=== PATIENT | female | born 1960 | race Caucasian/White ===

== ENCOUNTER → 2019-07-02 16:44 | Outpatient (CLI) | payer BC, SELFPAY ==
--- NOTE | ~2019-07-02 | XR_ITS ---
EXAMINATION: XR chest 2V DATE: 07/02/2019 16:57 INDICATION: Hemoptysis and cough TECHNIQUE: PA and lateral views of the chest are obtained. COMPARISON: 03/24/14 FINDINGS: The lungs are free of acute opacities. There is no pleural effusion or pneumothorax. The ca rdiomediastinal silhouette is normal. There is moderate thoracic spondylosis. Surgical clips in the r ight upper quadrant are likely from prior cholecystectomy. IMPRESSION: 1. No acute cardiopulmonary abnormality. Reviewed, dictated and finalized at location A. ER STACKER
== END ==
PROVIDERS: PCP Family Medicine; Visit Provider Family Medicine
DX: R04.2 Hemoptysis (principal)
CPT/HCPCS: 71046

== ENCOUNTER 2019-11-15 16:32 | Outpatient (CLI) | payer BC, SELFPAY ==
--- NOTE | ~2019-11-15 | US_ITS ---
EXAMINATION: US venous doppler [facility] DATE: 11/15/2019 17:29 INDICATION: Bilateral lower limb pain TECHNIQUE: Easton scale images without and with compression and Doppler images of the bilateral lower e xtremity veins were obtained. COMPARISON: None FINDINGS: The right common femoral vein, profunda femoral vein, femoral vein, popliteal vein, peroneal trunk, p osterior tibial veins, and greater saphenous vein are patent. The left common femoral vein, profunda femoral vein, femoral vein, popliteal vein, peroneal trunk, po sterior tibial veins, and greater saphenous vein are patent. IMPRESSION: 1. Patent bilateral lower extremity veins. No evidence of deep venous thrombosis. Reviewed, dictated and finalized at location A. IMPRESSION: 1. Patent bilateral lower extremity veins. No evidence of deep venous thrombosi s.
[2019-11-15 17:15] LABS: Basophils Percent Auto 0.6 % (0.2-1.2); Eosinophils Absolute Auto 0.1 K/mm3 (0-0.3); Hematocrit 35.7 % (37.0-47.0); Hemoglobin 11.6 g/dL (12.0-15.0); Immature Granulocyte Absolute 0.02 K/mm3 (0.00-0.031); Immature Granulocyte Percent A 0.3 % (0-0.5); Mean Corpuscular HGB Conc 32.5 g/dl (32-36); Mean Corpuscular Hemoglobin 30.6 pg (26-34); Mean Corpuscular Volume 94.2 fl (80-100); Mean Platelet Volume 10.4 fl (7.4-10.4); Monocytes Absolute Auto 0.7 K/mm3 (0.1-0.6); Monocytes Percent Auto 10.8 % (2.6-8.5); Neutrophils Absolute Auto 4.4 K/mm3 (1.3-6.7); Neutrophils Percent Auto 64.3 % (45.5-73.1); Platelet Count Result 254 k/mm3 (150-375); Red Blood Count 3.79 M/mm3 (4.2-5.4); White Blood Count 6.8 K/mm3 (4.5-10.0)
[2019-11-15 17:27] LABS: Add Urine Microscopic? YES; Amorphous Sediment Urine Moderate; Appearance Urine Cloudy (Clear); Bilirubin Urine Negative (Negative); Blood Urine Negative (Negative); Color Urine Yellow (Yellow); Glucose Urine UA Negative (Negative); Ketones Urine Negative (Negative); Leukocyte Esterase Ur Negative LEU/UL (NEGATIVE); Mucus Urine Rare /lpf; Nitrate Urine Negative (Negative); Protein Urine Negative (Negative); RBC Urine 0-2 /hpf (0-2); Specific Grav Ur 1.018 (1.001-1.035); Squamous Epithelial Cell Urine Many /hpf (Few); Urobilinogen Urine Negative mg/dL (<2.0); WBC Urine 0-3 /hpf (0-3)
[2019-11-15 17:54] LABS: Thyroid Stimulating Hormone 0.396 uIU/mL (0.465-4.680)
== END 2019-11-15 16:33 | disposition home or self-care (01) ==
PROVIDERS: Physician Assistant; PCP Family Medicine; Visit Provider Physician Assistant
DX: C50.912 Malignant neoplasm of unspecified site of left female breast (principal); M79.662 Pain in left lower leg; R60.0 Localized edema; R73.09 Other abnormal glucose; R53.83 Other fatigue; E03.9 Hypothyroidism, unspecified; E78.2 Mixed hyperlipidemia; E78.1 Pure hyperglyceridemia; M85.80 Other specified disorders of bone density and structure, unspecified site
CPT/HCPCS: 36415; 81001; 83036; 84443; 85025; 93970

== ENCOUNTER → 2020-08-08 02:21 | Outpatient (CLI) | payer BC, SELFPAY ==
[2020-08-08 19:27] LABS: SARS-CoV-2 RNA PCR Negative
== END ==
PROVIDERS: PCP Internal Medicine; Visit Provider Orthopaedic Surgery
DX: Z01.812 Encounter for preprocedural laboratory examination (principal); Z20.822 Contact with and (suspected) exposure to COVID-19
CPT/HCPCS: C9803; U0003; U0005

== ENCOUNTER 2020-08-11 02:07 | Day surgery (SDC) | payer BC, SELFPAY ==
[2020-08-04 16:02] VITALS: BMI 41.1
--- NOTE | 2020-08-08 14:53 | WPDANESEPPF ---
Anes - Initial Pre Proc Eval Procedure: Operation Date: 08/11/20 09:30 Proposed Procedures p Right Open Rotator Cuff Repair - Davey Zhu MD Date/Time: 08/08/20 14:53 Surgeon: Davey Zhu MD Pre Op Diagnosis: right rotator cuff tear Patient Data Age: 59 Gender: F Height: 1.57 m Weight: 102 kg Allergies Allergy/AdvReac Type Severity Reaction Status Date / Time Penicillins Allergy Mild Unknown Verified 08/04/20 15:59 cephalexin Allergy Unknown Unknown Verified 08/04/20 15:59 codeine AdvReac Mild Palpitation Verified 08/04/20 15:59 s CEPHALEXIN MONOHYDRATE Allergy Unknown UNKNOWN Uncoded 08/04/20 15:59 REACTION CHILD Home Medications Medication Instructions Recorded Confirmed Type celecoxib 100 mg capsule 100 mg PO DAILY 05/25/19 08/04/20 History multivitamin 1 tablet PO DAILY 05/25/19 08/04/20 History cholecalciferol (vitamin D3) 100 100 mcg PO DAILY #30 cap 11/15/19 08/04/20 Rx mcg (4,000 unit) capsule fenofibrate 160 mg tablet 160 mg PO DAILY #90 tablet 03/04/20 08/04/20 Rx levothyroxine 175 mcg tablet 175 mcg PO DAILY #90 tablet 06/04/20 08/04/20 Rx fluticasone propionate [Flonase] 1 spray INTRANASAL DAILY PRN 08/04/20 08/04/20 History glucos sul 4WOi-sbo-rpnve-C-Mn 1 cap PO DAILY 08/04/20 08/04/20 History [Glucosamine Chondroitin] vit C-vit V-gvkeln-lkyg-lutein 1 cap PO DAILY 08/04/20 08/04/20 History [PreserVision Lutein] zinc 50 mg PO DAILY 08/04/20 08/04/20 History Patient hx anesthesia problems: none Family hx anesthesia problems: none PMFSH Past Medical History Medical History Bilateral lower extremity edema BMI 40.0-44.9, adult Elevated glucose Fatigue Pain of left calf Palpitations Right shoulder pain Tachycardia Vitamin D deficiency, unspecified Vitamin deficiency Surgical History Surgical History H/O breast surgery breast cancer 2015 Family History Family History Father Family history of diabetes mellitus in first degree relative Mother Family history of diabetes mellitus in first degree relative Sibling Family history of diabetes mellitus in first degree relative Family history of lung cancer Social History Social History (Updated 07/23/20 @ 13:10 by Davey Zhu MD) Smoking packs per day: 0.5 Smoking cigarettes per day: 10.0 Years smoked: 45 Smoking pack-years: 22.50 Smoking status: Current every day smoker Tobacco type: cigarettes Second hand tobacco smoke exposure: No Smoking end date: 05/23/16 Alcohol intake: current Drinks per week: 7 Substance use: never Substance use type: does not use Living arrangements: with family Gender identity (if verbalized by the patient): Female Spiritual care concerns: No Anes - Eval Final PreProcedure Day of Procedure 08/08/20 14:53 Patient weight: morbidly obese Heart: regular rate and rhythm Lungs: clear to auscultation and normal air movement Airway: Mallampati scale class II Neurological: alert and oriented Last oral intake: >/= 8 hours ASA classification: III Emergent: no Anesthetic plan: proceed Anesthesia type and monitoring: general ETT and standard monitoring Informed Consent: The patient's anesthetic plan and its attendant risks and benefits were discussed with the patient/family/POA. Questions were solicited and answers provided to the satisfaction of the patient/family/POA.
[2020-08-11] VITALS (19 sets, daily range): BP systolic 135–161; BP diastolic 60–77; PULSE 95–115; RESP 14–24; TEMP 36.3–36.6; O2SAT 89–98
--- NOTE | 2020-08-11 06:07 | ECG_ITS ---
Measurements Intervals [place] Rate: 88 P: 48 AL: 141 QRS: 31 QRSD: 77 T: 18 QT: 349 QTc: 424 Interpretive Statements SINUS RHYTHM INCOMPLETE RIGHT BUNDLE BRANCH BLOCK BASELINE ARTIFACT- II, III, AVF, V1 BORDERLINE ECG Electronically Signed On 08-11-2020 7:57:40 CDT by Miguel Mock D.O.
[2020-08-11] MEDS: LACTATED RINGERS 1,000 ML 30 ML IV CONT ×2 (08:10→11:08)
--- NOTE | 2020-08-11 08:11 | WPDANESPNB ---
Anes - Peripheral Nerve Block Date/Time: 08/11/20 08:11 I have discussed with the patient/family/POA the placement of a peripheral nerve block for post-operative pain management, including associated risks, benefits, complications, and side effects. Alternative methods of post-operative analgesia were detailed. Questions were solicited and answers provided to the satisfaction of the patient/family/POA. Time-Out: A pre-procedural Time-Out was completed immediately before starting the procedure and confirmed: Patient Identification, Site, Procedure, Patient Position and the Availability of Requisite Equipment. Clinical Indications: Acute post-operative pain management requested by the operative surgeon. Nerve Block Insertion Note Anes-nerve block: interscalene right Patient position: supine Skin prep: chlorhexidine Needle: 22 gauge, stimulating, insulated echogenic needle. Needle length: 50 mm Technique: ultrasound Injectate: bupivacaine 0.5% with epi 5 mcg/ml (30cc- no epi) Observations: tolerated well Complications: none Procedure start time:: 937 Procedure end time:: 940
[2020-08-11] MEDS: KETOROLAC 15 MG/ML VIAL (*BKC) IV PUSH (08:26)
[2020-08-11] MEDS: ACETAMINOPHEN 500 MG TABLET 1000 MG PO (08:26)
--- NOTE | 2020-08-11 09:15 | WPDHPUPDATE1 ---
History and Physical Update Update Date/Time: 08/11/20 09:15 History and Physical has been reviewed, including an updated exam of the patient. There are NO changes in the patient's condition. Risks, benefits, and alternatives have been discussed and questions answered. Patient agrees to proceed with procedure.
[2020-08-11] MEDS: CLINDAMYCIN 900 MG/D5W 50 ML 900 MG/50 ML PIGGYBACK 50 MG IVPB (09:51)
[2020-08-11] MEDS: BUPIVACAINE/EPINEPHRINE 0.25% 50 ML VIAL 30 ML INFILTRATE (10:30)
--- NOTE | 2020-08-11 11:05 | P.OP_ITS ---
Procedure Note - Detailed Date of procedure: 08/11/20 Pre-op diagnosis: right rotator cuff tear Post-op diagnosis: same Procedure performed: Right rotator cuff repair Anesthesia: GETA Surgeon: Davey Zhu MD Color Card Maker: Moon Gillespie Estimated blood loss (mL): 20 Drains: No Packing: No Pathology: none sent Complications: No immediate complications Condition: stable Disposition: PACU
[2020-08-11] MEDS: ALBUTEROL SULFATE NEB 2.5 MG/3 ML INH 1.25 MG INHALATION (12:17)
--- NOTE | 2020-08-11 16:04 | SUR.PHASEII ---
1600 PT O2 SAT ON ROOM AIR NOT BELOW 90% SINCE 1455. PT STATES SHE FEELS LIKE SHE IS BREATHING BETTER & IS WANTING TO BE DISCHARGED HOME. PT MEETS ANESTHESIA DISCHARGE CRITERIA. DISCHARGE INSTRUCTIONS GIVEN & ALL QUESTIONS ANSWERED. 1613 DR MERAZ & DR DICK UPDATED ON PTS CONDITION- BOTH DOCTORS OKAY TO DISCHARGE HOME.
== END 2020-08-11 16:15 | disposition home or self-care (01) ==
PROVIDERS: PCP Internal Medicine; Visit Provider Orthopaedic Surgery
PROC: (CPT 23420; principal; 2020-08-11 09:30)
DX: M75.101 Unspecified rotator cuff tear or rupture of right shoulder, not specified as traumatic (principal); G89.18 Other acute postprocedural pain; R60.0 Localized edema; R00.2 Palpitations; R00.0 Tachycardia, unspecified; E55.9 Vitamin D deficiency, unspecified; F17.210 Nicotine dependence, cigarettes, uncomplicated
CPT/HCPCS: 64415; 23412; 93005; 94640; A4565; A9270; J0330; J1100; J1885; J2250; J2405; J2704; J3010; J7120

== ENCOUNTER → 2021-12-30 14:43 | Outpatient (CLI) | payer BC, SELFPAY ==
--- NOTE | ~2021-12-30 | US_ITS ---
EXAMINATION: US renal BI DATE: 12/30/2021 15:00 INDICATION: Hematuria, unspecified type TECHNIQUE: Multiple ultrasound grayscale images of the kidneys were obtained. COMPARISON: None. FINDINGS: The right kidney measures 10.7 x 6.4 x 6.3 cm. The left kidney measures 11.3 x 5.6 x 5.5 cm. The kidn eys demonstrate normal parenchymal echogenicity. There is no hydronephrosis. The bladder is normal. IMPRESSION: Normal renal ultrasound findings. Reviewed, dictated and finalized at location K.
== END ==
PROVIDERS: PCP Internal Medicine; Visit Provider Internal Medicine Medical Oncology
DX: R31.9 Hematuria, unspecified (principal)
CPT/HCPCS: 76775

== ENCOUNTER → 2022-01-11 10:36 | Outpatient (CLI) | payer BC, SELFPAY ==
--- NOTE | ~2022-01-11 | CT_ITS ---
EXAMINATION: CT abdomen pelvis wo/w con DATE: 01/11/2022 11:48 INDICATION: Gross hematuria TECHNIQUE: Computed tomography (CT) of the abdomen and pelvis was performed without intravenous contr ast. CT of the abdomen and pelvis was then performed with a total of 130 mL Omnipaque 350 intravenous contrast using a double-bolus technique for simultaneous opacification of the renal parenchyma and r enal collecting system. The dose-length product (DLP) was 2118.87 mGy-cm. Automated exposure control and iterative reconstruction technique were employed. COMPARISON: None FINDINGS: Minimal dependent atelectasis is present in the lung bases. The heart size is normal. The l iver is diffusely low in attenuation when compared with the spleen, consistent with hepatic steatosis . The gallbladder is surgically absent. The spleen, pancreas, and adrenal glands are normal. There is a 2 mm nonobstructing stone of the right kidney. The left kidney is unremarkable. There is no hydron ephrosis or hydroureter. There is a stricture at the right ureteropelvic junction. No suspicious mag l or urothelial lesion is identified. No pathologically enlarged abdominal or pelvic lymph nodes are identified. There is no free intraperitoneal gas or evidence of bowel obstruction. There is mild lumb ar spondylosis. IMPRESSION: 1. 2 mm nonobstructing stone of the right kidney. 2. Right ureteropelvic junction stricture. 3. No suspicious renal or urothelial lesion identified. Reviewed, dictated and finalized at location B.
[2022-01-11 11:25] LABS: Estimated Glomerular Filt Rate > 60
== END ==
DX: R31.9 Hematuria, unspecified (principal); N20.0 Calculus of kidney; Q62.11 Congenital occlusion of ureteropelvic junction
CPT/HCPCS: 74178; Q9967

== ENCOUNTER 2022-03-12 08:34 | Outpatient (CLI) | payer BC, SELFPAY ==
--- NOTE | 2022-03-15 17:53 | WPDPFTINT ---
PFT Procedure Performed PFT Procedure Performed Plethysmography (Lung Vol) Diffusing Cap (DLCO) Flow Vol Loop Spirometry w/o Bronchodil PFT Interpretation This is a pulmonary function test with spirometry, plethysmography and diffusing capacity. The test was performed and results interpreted in accordance with the 2019 and 2005 ATS/ERS Task Force guidelines respectively using the Global Lung Function Initiative-2012 reference equations. Patient demonstrated good effort and cooperation. Reproducibility criteria were met. The quality of the spirometry maneuver was Grade A. Findings: Spirometry: The contour the inspiratory and expiratory flow tracing are normal The FVC is 1.96 L, 71% predicted. The FEV1 is 1.58 L, 73% predicted. The FEV1: FVC ratio was 81%. Plethysmography: The total lung capacity 3.16 L, 68% predicted. The functional residual capacity is 1.33 L, 51% predicted. The residual volume is 1.20 L, 63% predicted. Diffusion capacity: The diffusing capacity unadjusted for hemoglobin and carboxyhemoglobin is 16.5, 82% predicted. The diffusing capacity adjusted for alveolar volume is 2.09, 46% predicted. Impression: There is a mild restrictive ventilatory abnormality with a normal FEV1. The spirometry is normal without evidence of an obstructive abnormality. The diffusing capacity unadjusted for hemoglobin and carboxyhemoglobin is normal and moderately decreased when adjusted for alveolar volume. There are no prior studies for comparison
== END 2022-03-12 08:35 | disposition home or self-care (01) ==
PROVIDERS: PCP Family Medicine; Visit Provider Family Medicine
DX: R06.02 Shortness of breath (principal); J44.9 Chronic obstructive pulmonary disease, unspecified; R94.2 Abnormal results of pulmonary function studies
CPT/HCPCS: 94375; 94726; 94729

== ENCOUNTER 2022-08-20 13:30 | Observation (INO) | payer BC, SELFPAY ==
[2022-08-20] VITALS (11 sets, daily range): BP systolic 100–120; BP diastolic 57–70; PULSE 72–86; RESP 14–18; TEMP 36.6–36.8; O2SAT 92–97; BMI 45.8
--- NOTE | ~2022-08-20 | XR_ITS ---
EXAMINATION: XR retrograde pyelo w/stent RT DATE: 08/21/2022 08:54 INDICATION: Right ureteral stone. TECHNIQUE: 7 intraoperative fluoroscopic views of the abdomen and pelvis were obtained. I was not pre sent. Fluoroscopy exposure time was 114 seconds. COMPARISON: CT abdomen and pelvis 08/21/2022 FINDINGS: Surgical clips in the right upper quadrant are likely from cholecystectomy. The right-sided retrograde pyelogram demonstrates moderate right hydronephrosis and hydroureter. The final images de monstrate a right internal ureteral stent in expected position. IMPRESSION: 1. Right internal ureteral stent in expected position. Reviewed, dictated and finalized at location A.
--- NOTE | ~2022-08-20 | XR_ITS ---
XR abdomen/kub 1V DATE: 08/20/2022 14:39 INDICATION: Right kidney stone TECHNIQUE: AP projection, 2 views COMPARISON: 820 07/25/2021 CT abdomen FINDINGS: No urinary tract calcification is evident. No visceromegaly is detected. Associated as are intact. Surgical clips, right upper quadrant, consistent with cholecystectomy. No evidence of bowel obstruction Included skeletal structures are unremarkable. IMPRESSION: Nonspecific abdomen Status post cholecystectomy Reviewed, dictated and finalized at Location A. Reviewed, dictated and finalized at location B.
--- NOTE | ~2022-08-20 | CT_ITS ---
EXAMINATION: CT abdomen pelvis wo con DATE: 08/21/2022 05:52 INDICATION: Kidney stone. Right flank pain. TECHNIQUE: Computed tomography (CT) of the abdomen and pelvis was performed without intravenous contr ast. Automated exposure control and iterative reconstruction technique were employed. The dose-length product was 1143.34 mGy-cm. COMPARISON: CT abdomen and pelvis 01/11/2022 FINDINGS: The visualized portions of the lung bases demonstrate mild atelectasis. There are small douglas ateral posterior diaphragmatic hernias containing fat. No pleural effusion. The heart size is normal. No pericardial effusion. There is diffuse hepatic steatosis. There are changes of cholecystectomy. T he spleen, pancreas, adrenal glands, and left kidney are normal. There is moderate right hydronephros is and proximal hydroureter. There is a 5 mm stone in proximal right ureter. There is diverticulosis of the colon without evidence of diverticulitis. There are no dilated loops of bowel. The appendix is not visualized. There is chronic mild fat stranding at the root of the small bowel mesentery, consis tent with chronic mesenteric panniculitis. There is an umbilical hernia containing fat. There is mild asymmetric edema in right retroperitoneum. There are no pathologically enlarged lymph nodes. There i s no free intraperitoneal fluid. There is mild lumbar spondylosis. IMPRESSION: 1. 5 mm stone in proximal right ureter with moderate right hydronephrosis and proximal hydroureter. 2. Diffuse hepatic steatosis. 3. Umbilical hernia containing fat. Reviewed, dictated and finalized at location A. IMPRESSION: 1. 5 mm stone in proximal right ureter with moderate right hydronephrosis and p roximal hydroureter. 2. Diffuse hepatic steatosis. 3. Umbilical hernia containing fat.
[2022-08-20 14:00] LABS: Appearance Urine Clear (Clear); Bacteria Urine None Seen /hpf; Bilirubin Urine Negative (Negative); Blood Urine Trace (Negative); Color Urine Yellow (Yellow); Glucose Urine UA Negative (Negative); Ketones Urine Negative (Negative); Leukocyte Esterase Ur Trace LEU/UL (Negative); Nitrate Urine Negative (Negative); Protein Urine Negative (Negative); RBC Urine 0-2 /hpf (0-2); Specific Grav Ur 1.015 (1.001-1.035); Squamous Epithelial Cell Urine Few /hpf (Few); Urobilinogen Urine 0.2 mg/dL (<2.0)
--- NOTE | 2022-08-20 14:00 | ED.GENADULT ---
HPI - General Adult General Chief complaint: Urogenital-Female Stated complaint: kidney stone Time Seen by Provider: 08/20/22 13:37 Source: RN notes reviewed History of Present Illness HPI narrative: Patient presents emergency department from home for kidney stone. Patient states she began to experience pain in the right flank last night states that the pain is described as aching in nature and radiates around to the right side of the abdomen. It was associated with some nausea at home this morning. The patient gone to [place] emergency department last night was diagnosed with a kidney stone. She been discharged and returned to the [place] ER this morning for increasing pain was given a shot of Toradol and was told she needs to see urology they attempted to transfer to [facility] but patient states she would want to come to [facility] instead. The patient states that her daughters receive care here and she wished to have care at our facility states she had no fevers or chills she denies any chest pain shortness of breath denies any vomiting or diarrhea Related Data Home Medications Medication Instructions Recorded Confirmed multivitamin 1 tablet PO DAILY 05/25/19 08/20/22 fluticasone propionate 50 1 spray intranasal DAILY PRN 08/04/20 08/20/22 mcg/actuation nasal Allergic Symptoms spray,suspension metformin 500 mg tablet,extended 500 mg PO DAILY 01/13/22 08/20/22 release 24 hr metoprolol succinate 25 mg 12.5 mg PO BID 08/17/22 tablet,extended release 24 hr celecoxib 100 mg capsule See Rx Instructions .Route 08/20/22 08/20/22 .COMPLEX PRN Pain fenofibrate 160 mg tablet 160 mg PO HS 08/20/22 08/20/22 Allergies Allergy/AdvReac Type Severity Reaction Status Date / Time Penicillins Allergy Mild Unknown Verified 08/20/22 18:30 cephalexin Allergy Unknown Unknown Verified 08/20/22 18:30 codeine AdvReac Mild Palpitation Verified 08/20/22 18:30 s CEPHALEXIN MONOHYDRATE Allergy Unknown UNKNOWN Uncoded 08/20/22 18:30 REACTION CHILD Review of Systems Review of Systems: Gen.: Denies fevers or chills ENT: Denies congestion Respiratory: Denies shortness of breath or cough CV: Denies chest pain or palpitations GI: Reports right flank and abdominal pain, reports nausea. Denies vomiting or diarrhea reports kidney stones Musculoskeletal: Denies back pain or muscle pain Neuro: Denies numbness, tingling, weakness or focal weakness Skin: Denies rash Except as documented, all other systems reviewed and negative [facility] Past Medical History Medical History Acute sinus infection Bilateral lower extremity edema BMI 40.0-44.9, adult COPD (chronic obstructive pulmonary disease) Diabetes type 2, controlled Elevated glucose Establishing care with new doctor, encounter for Fatigue History of frequent ear infections Hospital discharge follow-up Hospital discharge follow-up Hypothyroidism Otitis media Pain of left calf Palpitations Right shoulder pain Sinus tachycardia Tachycardia Tinnitus UTI (urinary tract infection) Vitamin D deficiency, unspecified Vitamin deficiency Surgical History Surgical History H/O breast surgery breast cancer 2014 Tear of right rotator cuff Right rotator cuff repair July 2020 Family History Family History Father Family history of diabetes mellitus in first degree relative Mother Family history of diabetes mellitus in first degree relative Sibling Family history of diabetes mellitus in first degree relative Family history of lung cancer Social History Social History Smoking packs per day: 0.5 Smoking cigarettes per day: 10.0 Years smoked: 45 Smoking pack-years: 22.50 Smoking status: Former smoker Tobacco type: cigarettes
[2022-08-20 14:11] LABS: Add Urine Microscopic? YES
[2022-08-20] MEDS: SODIUM CHLORIDE 0.9% IV 1,000 ML 999 ML IV CONT (14:26)
[2022-08-20] MEDS: MORPHINE SULFATE (*CRX) 4 MG/ML INJ 2 MG IV PUSH (14:26)
[2022-08-20 14:29] LABS: Basophils Percent Auto 0.4 % (0.2-1.2); Eosinophils Absolute Auto 0.1 K/mm3 (0-0.3); Eosinophils Percent Auto 1.4 % (0-4.4); Hematocrit 34.5 % (37.0-47.0); Hemoglobin 11.3 g/dL (12.0-15.0); Immature Granulocyte Absolute 0.02 K/mm3 (0.00-0.031); Immature Granulocyte Percent A 0.2 % (0-0.5); Lymphocytes Absolute Auto 1.56 K/mm3 (0.9-3.2); Lymphocytes Percent Auto 17.4 % (18.3-44.2); Mean Corpuscular HGB Conc 32.8 g/dl (32-36); Mean Corpuscular Volume 94.5 fl (80-100); Mean Platelet Volume 10.6 fl (7.4-10.4); Monocytes Absolute Auto 0.7 K/mm3 (0.1-0.6); Monocytes Percent Auto 7.2 % (2.6-8.5); Neutrophils Absolute Auto 6.6 K/mm3 (1.3-6.7); Neutrophils Percent Auto 73.4 % (45.5-73.1); Platelet Count Result 329 k/mm3 (150-375); Red Blood Count 3.65 M/mm3 (4.2-5.4); Red Cell Distribution Width 13.2 % (11.5-14.5)
--- NOTE | 2022-08-20 15:41 | WPDURCON ---
Assessment and Plan Assessment and plan (1) UTI (urinary tract infection): Code(s): N39.0 - Urinary tract infection, site not specified Status: Acute Assessment and Plan: Patient was given Ciprofloxacin at [facility] ER. She took one dose this morning. Continue Cipro, we can tailor antibiotics when culture is resulted. (2) Ureteral stone: Code(s): N20.1 - Calculus of ureter Status: Acute Assessment and Plan: Obtain consent: Cystoscopy, right ureteroscopy with stone extraction, right stent placement, right retrograde pyelogram, possible holmium laser. Keep NPO after midnight, will plan to operate tomorrow morning. Keep overnight for pain control. The patient had a large lunch around 1200, per anesthesia and Dr. Elder surgery at this time and sedation is not an emergency situation since her pain is well controlled and she is afebrile with a normal WBC. Urology Consult Note HPI Date Seen: 08/20/22 Time Seen: 15:41 Requesting Physician: Tammy Elder MD Primary Care Provider: Darryl Valdez MD Consult Narrative Reason for consult: Right Ureteral Stone Narrative: Siri Gonsales is a 61 year old female who presented to the ER today for worsening right flank pain, bladder pain, frequency and urgency. She has a WBC of 9.0, creatinine is pending and UA does have some leukocyte esterase present, urine culture is pending. KUB today doesn't show a stone, however she has been to [facility] ([facility]) twice in the past 24 hours and was initially diagnosed with a 7mm right UPJ stone on CT scan. No KUB was done at that time to know if the stone was ever visible on KUB. This is her 3rd trip to the ER in 24 hours for pain related to her ureteral stone. She denies nausea, vomiting, hematuria or dysuria and she is afebrile at this time. Review of Systems Cardiovascular: Cardiovascular: Denies chest pain Respiratory: Respiratory: Reports no additional respiratory complaints Gastrointestinal: Gastrointestinal: Denies abdominal pain, Denies nausea and Denies vomiting Genitourinary: Genitourinary: Denies hematuria, Reports nocturia, Denies dysuria, Reports pelvic pain, Reports flank pain and Reports urinary urgency PMFSH Past Medical History Medical History Acute sinus infection Bilateral lower extremity edema BMI 40.0-44.9, adult COPD (chronic obstructive pulmonary disease) Diabetes type 2, controlled Elevated glucose Establishing care with new doctor, encounter for Fatigue History of frequent ear infections Hospital discharge follow-up Hospital discharge follow-up Hypothyroidism Otitis media Pain of left calf Palpitations Right shoulder pain Sinus tachycardia Tachycardia Tinnitus UTI (urinary tract infection) Vitamin D deficiency, unspecified Vitamin deficiency Surgical History Surgical History H/O breast surgery breast cancer 2014 Tear of right rotator cuff Right rotator cuff repair July 2020 Family History Family History Father Family history of diabetes mellitus in first degree relative Mother Family history of diabetes mellitus in first degree relative Sibling Family history of diabetes mellitus in first degree relative Family history of lung cancer Social History Social History Smoking packs per day: 0.5 Smoking cigarettes per day: 10.0 Years smoked: 45 Smoking pack-years: 22.50 Smoking status: Current every day smoker Tobacco type: cigarettes Second hand tobacco smoke exposure: No Smoking end date: 05/23/16 Alcohol intake: current Drinks per week: 7 Substance use: never Substance use type: does not use Living arrangements: with family Occupation/Education: unemployed Gender identity (if ve
--- NOTE | 2022-08-20 15:57 | WPDANESEPPF ---
Anes - Initial Pre Proc Eval Procedure: Operation Date: 08/20/22 15:30 Proposed Procedures p Cystoscopy, Right Ureteroscopy, Possible Right Retrograde Pyelogram, Possible Right Stone Extraction, Possible Right Stent Placement, Possible Holmium Laser Procedure - Tammy Elder MD Date/Time: 08/20/22 15:57 Surgeon: Tammy Elder MD Pre Op Diagnosis: kidney stone Patient Data Age: 61 Gender: F Height: 1.55 m Weight: 104.54 kg Last Vital Signs Temp 36.6 C 08/20/22 15:42 Pulse 86 08/20/22 15:42 Resp 14 08/20/22 15:42 BP 116/69 08/20/22 15:42 Pulse Ox 94 08/20/22 15:42 O2 Del Method Room Air 08/20/22 15:42 Allergies Allergy/AdvReac Type Severity Reaction Status Date / Time Penicillins Allergy Mild Unknown Verified 08/20/22 13:31 cephalexin Allergy Unknown Unknown Verified 08/20/22 13:31 codeine AdvReac Mild Palpitation Verified 08/20/22 13:31 s CEPHALEXIN MONOHYDRATE Allergy Unknown UNKNOWN Uncoded 08/20/22 13:31 REACTION CHILD Home Medications Medication Instructions Recorded Confirmed Type multivitamin 1 tablet PO DAILY 05/25/19 06/04/22 History cholecalciferol (vitamin D3) 100 100 mcg PO DAILY #30 caps 11/15/19 06/04/22 Rx mcg (4,000 unit) capsule fluticasone propionate 50 1 spray intranasal DAILY PRN 08/04/20 06/04/22 History mcg/actuation nasal Allergic Symptoms spray,suspension fenofibrate 160 mg tablet See Rx Instructions .Route 12/01/20 06/04/22 Rx .COMPLEX #90 tabs metformin 500 mg tablet,extended 500 mg PO DAILY 01/13/22 06/04/22 History release 24 hr albuterol sulfate 90 mcg/actuation See Rx Instructions .Route 03/23/22 06/04/22 Rx aerosol inhaler .COMPLEX #20.1 grams levothyroxine 150 mcg tablet 150 mcg PO DAILY #90 tabs 05/12/22 06/04/22 Rx celecoxib 100 mg capsule See Rx Instructions .Route 06/02/22 06/04/22 Rx .COMPLEX #180 caps pantoprazole 20 mg tablet,delayed See Rx Instructions .Route 06/04/22 06/04/22 Rx release .COMPLEX #30 tabs doxycycline hyclate 100 mg tablet 100 mg PO BID #20 tabs 08/04/22 08/04/22 Rx metoprolol succinate 25 mg 12.5 mg PO BID 08/17/22 History tablet,extended release 24 hr Laboratory Tests 08/20/22 08/20/22 08/20/22 13:46 14:23 14:23 WBC 9.0 K/mm3 K/mm3 (4.5-10.0) RBC 3.65 M/mm3 L M/mm3 (4.2-5.4) Hgb 11.3 g/dL L g/dL (12.0-15.0) Hct 34.5 % L % (37.0-47.0) MCV 94.5 fl fl (80-100) MCH 31.0 pg pg (26-34) MCHC 32.8 g/dl g/dl (32-36) RDW 13.2 % % (11.5-14.5) Plt Count 329 k/mm3 k/mm3 (150-375) MPV 10.6 fl H fl (7.4-10.4) Immature Gran % (Auto) 0.2 % % (0-0.5) Neut % (Auto) 73.4 % H % (45.5-73.1) Lymph % (Auto) 17.4 % L % (18.3-44.2) Irion % (Auto) 7.2 % % (2.6-8.5) Eos % (Auto) 1.4 % % (0-4.4) Baso % (Auto) 0.4 % % (0.2-1.2) Lymph # (Auto) 1.56 K/mm3 K/mm3 (0.9-3.2) Irion # (Auto) 0.7 K/mm3 H K/mm3 (0.1-0.6) Eos # (Auto) 0.1 K/mm3 K/mm3 (0-0.3) Baso # (Auto) 0.0 K/mm3 K/mm3 (0.0-0.1) Abs Immat Gran (auto) 0.02 K/mm3 K/mm3 (0.00-0.031) Absolute Neuts (auto) 6.6 K/mm3 K/mm3 (1.3-6.7) Absolute Nucleated RBC 0.0 K/mm3 K/mm3 (0.0-0.012) Nucleated RBC % 0.0 % % (0.0-0.2) Sodium Pending Potassium Pending Chloride Pending Carbon Dioxide Pending Anion Gap Pending BUN Pending Creatinine Pending Estim Creat Clear Calc Pending Estimated GFR Pending Glucose Pending Calcium Pending Total Bilirubin Pending AST Pending ALT Pending Alkaline Phosphatase Pending Total Protein Pending Albumin Pending Urine Color Yellow
--- NOTE | 2022-08-20 16:00 | SUR.PREOP ---
1545- Patient brought to pre-op area for anticipated surgery with Dr. Elder. It was discovered that patient had eaten a large meal around noon. Per anesthesia it was decided that it would be best to cancel surgery due to patient's NPO status. Dr. Elder at bedside during this discussion. [facility] as patient will now need to be admitted and stay over night. 1600- Dr. Elder spoke with ER physician regarding patient's need to be admitted. ER physician agreed to admit patient to hospitalist service. Orders placed for admission. 1615[facility]. 1640- Report called to JOE Martinez and patient transported to room 341 with all belongings. Patient's at bedside.
--- NOTE | 2022-08-20 16:56 | ADMGEN ---
This patient, Siri Gonsales, was admitted to Medical Room 341-01. Patient/family oriented to hospital policies and general routines including ID bracelet, bed and alarms, visiting hours, pain management, procedures, bathroom and other care routines, personal items, smoking policy, room service/diet, and visiting hours. Information on how to activate the Rapid Response Team has been discussed. Patient/Family are encouraged to report perceived risks to care and to ask questions if they do not understand what they are told or what they should do.
[2022-08-20] MEDS: CIPROFLOXACIN 400 MG/D5W 200ML 200 ML 200 MG IVPB (18:01)
[2022-08-20 20:00] LABS: Alanine Aminotransferase 15 U/L (6-35); Albumin Level 3.6 g/dL (3.5-5.1); Alkaline Phosphatase 53 U/L (38-126); Anion Gap 9 mmol/L (8-16); Aspartate Amino Transferase 22 U/L (14-36); Bilirubin,Total 0.3 mg/dL (0.2-1.3); Blood Urea Nitrogen 23 mg/dL (7-17); Calcium 8.7 mg/dL (8.4-10.2); Carbon Dioxide 23 mmol/L (22-30); Chloride 104 mmol/L (98-107); Estimated CRCL calculation 81 ml/min; Estimated Glomerular Filt Rate > 60; Glucose 165 mg/dL (65-110); Potassium 4.3 mmol/L (3.4-5.0); Sodium 136 mmol/L (137-145)
--- NOTE | 2022-08-20 22:34 | PM.IMHP ---
H&P: HPI History of Present Illness Date/Time: 08/20/22 22:34 Chief Complaint: Kidney stone Narrative: This is a 61-year-old female patient who has had a history of kidney stones. The patient had pain to her right flank last night that is achy and radiates to her right side. The patient had some nausea at home this morning. The patient had gone [facility] emergency room last night and was diagnosed with kidney stone. She was discharged to return to [facility] ER this morning for recent pain. The patient was given a shot of Toradol. The patient was told that she needs to see Urology and they attempted to transfer a stainless is a patient stated she wanted to come here. Abnormal labs H&H is 11.3 and 34.5 with no recent labs for comparison. Sodium 136. Glucose 165. Abdominal x-ray was read as nonspecific abdomen status post cholecystectomy. CT from last night on 08/19/2022 there is a 7 mm partially obstructing calculus in the mid right ureter with [id number]-[id number] right hydronephrosis and proximal right hydroureter. The patient was taken to OR but was unable to have a cystoscopy because she had eaten a full lunch today. The patient was started on Cipro at [facility] she took a dose this morning. Her blood pressure today is 100/57. The patient was given IV fluids Levaquin and Cipro. The patient is being admitted to observation status on the date of service of 08/20/2022. Review of Systems Review of Systems: All systems reviewed & are unremarkable except as noted in HPI and below Constitutional: Constitutional: Reports as per HPI and Reports no additional constitutional complaints Eyes: Eyes: Reports as per HPI and Reports no additional eye complaints ENT: Reports system reviewed and no additional complaints, except as documented and Reports Normal hearing present Cardiovascular: Cardiovascular: Reports no additional cardiovascular complaints Respiratory: Respiratory: Reports no additional respiratory complaints and Reports no additional respiratory complaints Gastrointestinal: Gastrointestinal: Reports as per HPI and Reports no additional gastrointestinal complaints Musculoskeletal: Musculoskeletal: Reports no additional musculoskeletal complaints Integumentary/Breasts: Skin/Breast: Reports system reviewed and no additional complaints, except as docu and Reports as per HPI Neurologic: Reports system reviewed and no additional complaints, except as documented, Reports as per HPI and Reports Normal hearing present Psychiatric: Psychiatric: Reports no additional psychiatric complaints and Reports as per HPI Endocrine: Endocrine: Reports no additional endocrine complaints Hematologic/Lymphatic: Hematologic/Lymphatic: Reports no additional hematologic/lymphatic complaints Allergic/Immunologic: Allergic/Immunologic: Reports no additional allergic/immunologic complaints [facility] Past Medical History Medical History Acute sinus infection Bilateral lower extremity edema BMI 40.0-44.9, adult COPD (chronic obstructive pulmonary disease) Diabetes type 2, controlled Elevated glucose Establishing care with new doctor, encounter for Fatigue History of frequent ear infections Hospital discharge follow-up Hospital discharge follow-up Hypothyroidism Otitis media Pain of left calf Palpitations Right shoulder pain Sinus tachycardia Tachycardia Tinnitus UTI (urinary tract infection) Vitamin D deficiency, unspecified Vitamin deficiency Surgical History Surgical History (Updated 08/20/22 @ 22:48 by Shruthi Brunson NP) H/O breast surgery breast cancer 2014 H/O colonoscopy with polypectomy H/O lumpectomy H/O: hysterectomy History of appendectomy Hx of cholecystectomy Tear of right rotator cuff Right rotator cuff repair July 2020 Family History Family History Father Family history of diabetes mellitus in
[2022-08-20 23:15] LABS: Glucose Point of Care 115 mg/dl (65-105)
[2022-08-20] MEDS: SODIUM CHLORIDE 0.9% IV 1,000 ML 100 ML IV CONT (23:20)
[2022-08-20] MEDS: FENOFIBRATE 160 MG TABLET PO (23:45)
[2022-08-20] MEDS: METOPROLOL TARTRATE 12.5 MG TABLET PO (23:45)
[2022-08-21] VITALS (7 sets, daily range): BP systolic 106–120; BP diastolic 52–72; PULSE 84–94; RESP 12–19; TEMP 36.5–37.2; O2SAT 92–98
[2022-08-21] MEDS: CIPROFLOXACIN 400 MG/D5W 200ML 200 ML 200 MG IVPB (05:17)
[2022-08-21 06:29] LABS: Basophils Percent Auto 0.3 % (0.2-1.2); Eosinophils Absolute Auto 0.1 K/mm3 (0-0.3); Eosinophils Percent Auto 1.5 % (0-4.4); Hematocrit 31.9 % (37.0-47.0); Hemoglobin 10.1 g/dL (12.0-15.0); Immature Granulocyte Absolute 0.02 K/mm3 (0.00-0.031); Immature Granulocyte Percent A 0.2 % (0-0.5); Lymphocytes Absolute Auto 1.22 K/mm3 (0.9-3.2); Lymphocytes Percent Auto 14.2 % (18.3-44.2); Mean Corpuscular HGB Conc 31.7 g/dl (32-36); Mean Corpuscular Hemoglobin 30.1 pg (26-34); Mean Corpuscular Volume 94.9 fl (80-100); Mean Platelet Volume 10.6 fl (7.4-10.4); Monocytes Absolute Auto 0.9 K/mm3 (0.1-0.6); Monocytes Percent Auto 10.1 % (2.6-8.5); Neutrophils Absolute Auto 6.3 K/mm3 (1.3-6.7); Neutrophils Percent Auto 73.7 % (45.5-73.1); Platelet Count Result 271 k/mm3 (150-375); Red Blood Count 3.36 M/mm3 (4.2-5.4); Red Cell Distribution Width 13.2 % (11.5-14.5); White Blood Count 8.6 K/mm3 (4.5-10.0)
[2022-08-21 06:36] LABS: Glucose Point of Care 119 mg/dl (65-105)
[2022-08-21 06:38] LABS: Lactic Acid Reflex 1.6 mmol/L (0.7-2.0)
[2022-08-21 06:45] LABS: Hemoglobin A1C 5.9 % (<5.7)
--- NOTE | 2022-08-21 07:37 | P.PNAN_ITS ---
Anes - Eval Final PreProcedure Day of Procedure 08/21/22 07:37 Patient weight: morbidly obese Heart: regular rate and rhythm Lungs: clear to auscultation Airway: Mallampati scale class II Neurological: alert and oriented Last oral intake: >/= 8 hours ASA classification: III Emergent: no Anesthetic plan: proceed Anesthesia type and monitoring: general LMA and standard monitoring Results Review: All pre-operative results and documents have been reviewed as part of the pre- operative evaluation. Informed Consent: The patient's anesthetic plan and its attendant risks and benefits were discussed with the patient/family/POA. Questions were solicited and answers provided to the satisfaction of the patient/family/POA.
--- NOTE | 2022-08-21 07:48 | WPDHPUPDATE1 ---
History and Physical Update Update Date/Time: 08/21/22 07:48 History and Physical has been reviewed, including an updated exam of the patient. There are NO changes in the patient's condition. Risks, benefits, and alternatives have been discussed and questions answered. Patient agrees to proceed with procedure. Stone is quite proximal. I will make an attempt at ureteroscopy. If I can get to the stone were extracted. If not we will temporize things with a stent and plan on definitive stone management in the future. Uro she was discharged home today
[2022-08-21] MEDS: LIDOCAINE HCL 2% GEL UROJET 10 ML PKG MUCOUS MEM (08:28)
--- NOTE | 2022-08-21 08:31 | P.OP_ITS ---
Procedure Note - Detailed Date of Procedure 08/21/22 Pre-op Diagnosis Right ureteral stone Post-op Diagnosis Same Procedure Performed Cystoscopy, right retrograde pyelogram, right ureteroscopy, holmium laser lithotripsy, stone extraction, stent placement Surgeon Torsten Day MD Anesthesia General Indications This was the right ureteral stone who is here for intervention. She understands risks of bleeding, infection, damage to the urinary tract, lack of stone extraction, need for ancillary procedures. She agrees to proceed Findings 6 mm mid ureteral stone. Description of Procedure She was correctly identified. Informed consent obtained. She from the operating room. She was given general anesthesia. She was placed in dorsal lithotomy position. She was prepped and draped in a sterile fashion. Time-out performed. She was already on appropriate antibiotics. Performed cystoscopy. The bladder was and was normal. There is no tumors or stones. She did agree of prolapse. Ray tecs were placed in the vagina to elevate the bladder. These removed into the case. I did a gentle retrograde pyelogram on the right. There was no extravasation. She had hydronephrosis proximal to mid ureteral stone. There was quite a bit of tortuosity to the ureter. I placed a guidewire into the kidney. I then loaded a 5 [place] [employer] angiographic catheter over the guidewire to help straighten out the tortuous ureter. I left the guidewire in the kidney. I then performed rigid ureteroscopy. The stone was extracted. It was too large to be extracted intact. I used the Luis laser to fragment the stone. I used the dusting setting. I fragmented the stone to very small submillimeter size fragments. I chose the 1 larger fragment and extracted intact. I then placed a 4.8 variable length stent. Proximal coils in the kidney. Distal coils in the bladder. The bladder was drained. She was awakened transferred to PACU in stable condition. Estimated Blood Loss 1 Urine Output 1,400 Pathology Yes (Stone) Complications No immediate complications Condition Stable
[2022-08-21] MEDS: LACTATED RINGERS 1,000 ML 30 ML IV CONT (08:35)
[2022-08-21 08:41] LABS: Glucose Point of Care 116 mg/dl (65-105)
[2022-08-21] MEDS: LEVOTHYROXINE SODIUM 150 MCG TABLET PO (09:30)
[2022-08-21] MEDS: CHOLECALCIFEROL 1,000 UNITS TABLET 1000 UNITS PO (09:35)
[2022-08-21] MEDS: MULTIVITAMINS THERAPEUTIC TAB (*BKC) 1 TABLET PO (09:35)
[2022-08-21] MEDS: oxyBUTYnin CHLORIDE 5 MG TABLET PO ×2 (09:49→12:13)
[2022-08-21 11:57] LABS: Glucose Point of Care 167 mg/dl (65-105)
[2022-08-21] MEDS: PHENAZOPYRIDINE HCL 100 MG TABLET 200 MG PO (12:12)
[2022-08-21 13:13] LABS: Alanine Aminotransferase 15 U/L (6-35); Albumin Level 3.7 g/dL (3.5-5.1); Alkaline Phosphatase 58 U/L (38-126); Anion Gap 7 mmol/L (8-16); Aspartate Amino Transferase 25 U/L (14-36); Bilirubin,Total 0.4 mg/dL (0.2-1.3); Blood Urea Nitrogen 17 mg/dL (7-17); Calcium 8.5 mg/dL (8.4-10.2); Carbon Dioxide 23 mmol/L (22-30); Chloride 107 mmol/L (98-107); Estimated CRCL calculation 72 ml/min; Estimated Glomerular Filt Rate > 60; Glucose 123 mg/dL (65-110); Magnesium 2.1 mg/dL (1.6-2.3); Potassium 4.6 mmol/L (3.4-5.0); Sodium 137 mmol/L (137-145)
--- NOTE | 2022-09-02 16:51 | PM.IMPN ---
Progress Note: A&P Assessment and Plan (1) Kidney stone on right side: Code(s): N20.0 - Calculus of kidney Status: Acute Assessment and Plan: The patient was going to have a cystoscopy today however the patient had eaten a full lunch and was not NPO. Keep patient NPO after midnight. Continue with IV fluid Analgesics as needed (2) UTI (urinary tract infection): Code(s): N39.0 - Urinary tract infection, site not specified Status: Acute Assessment and Plan: Patient was placed on Cipro Urine culture is pending (3) Sinus tachycardia: Code(s): R00.0 - Tachycardia, unspecified Status: Acute Assessment and Plan: The patient stated that she is awaiting her Holter monitor. She had asked me to order a Holter monitor. The patient is not being admitted for the tachycardia today and her heart rate is less than 100. The patient is on metoprolol The patient is to see Cardiology yet. (4) COPD (chronic obstructive pulmonary disease): Code(s): J44.9 - Chronic obstructive pulmonary disease, unspecified Status: Acute Assessment and Plan: Continue with patient's home inhalers (5) Hypothyroidism: Code(s): E03.9 - Hypothyroidism, unspecified Status: Acute Assessment and Plan: Check thyroid level continue with Synthroid (6) Diabetes type 2, controlled: Code(s): E11.9 - Type 2 diabetes mellitus without complications Status: Acute Assessment and Plan: Accu-Cheks q.6 hours with sliding scale insulin and hypoglycemic protocol check A1c Hold metformin (7) Mixed hyperlipidemia: Code(s): E78.2 - Mixed hyperlipidemia Status: Acute Assessment and Plan: Continue with fenofibrate Subjective Date/time seen: 09/02/22 16:51 Review of Systems Review of Systems: All systems reviewed & are unremarkable except as noted in HPI and below Objective Data Meds/Results Radiology Results: ITS Impressions Abdomen X-Ray 08/20/22 14:40 IMPRESSION: Nonspecific abdomen Status post cholecystectomy Abdomen/Pelvis CT 08/21/22 07:10 IMPRESSION: 1. 5 mm stone in proximal right ureter with moderate right hydronephrosis and proximal hydroureter. 2. Diffuse hepatic steatosis. 3. Umbilical hernia containing fat. Retrograde Pyelogram 08/21/22 09:44 IMPRESSION: 1. Right internal ureteral stent in expected position.
--- NOTE | 2022-09-20 11:34 | PM.DS ---
DS: Admitting Diagnosis Discharge Date 08/21/22 Admitting Diagnosis Kidney stone DS: Discharge Diagnosis Discharge Diagnosis (1) Kidney stone on right side: Code(s): N20.0 - Calculus of kidney Status: Acute Assessment and Plan: The patient was going to have a cystoscopy today however the patient had eaten a full lunch and was not NPO. Keep patient NPO after midnight. Continue with IV fluid Analgesics as needed (2) UTI (urinary tract infection): Code(s): N39.0 - Urinary tract infection, site not specified Status: Acute Assessment and Plan: Patient was placed on Cipro Urine culture is pending (3) Sinus tachycardia: Code(s): R00.0 - Tachycardia, unspecified Status: Acute Assessment and Plan: The patient stated that she is awaiting her Holter monitor. She had asked me to order a Holter monitor. The patient is not being admitted for the tachycardia today and her heart rate is less than 100. The patient is on metoprolol The patient is to see Cardiology yet. (4) COPD (chronic obstructive pulmonary disease): Code(s): J44.9 - Chronic obstructive pulmonary disease, unspecified Status: Acute Assessment and Plan: Continue with patient's home inhalers (5) Hypothyroidism: Code(s): E03.9 - Hypothyroidism, unspecified Status: Acute Assessment and Plan: Check thyroid level continue with Synthroid (6) Diabetes type 2, controlled: Code(s): E11.9 - Type 2 diabetes mellitus without complications Status: Acute Assessment and Plan: Accu-Cheks q.6 hours with sliding scale insulin and hypoglycemic protocol check A1c Hold metformin (7) Mixed hyperlipidemia: Code(s): E78.2 - Mixed hyperlipidemia Status: Acute Assessment and Plan: Continue with fenofibrate DS: Summary Hospital Course Reason for hospitalization: Kidney stone Narrative: This is a 61-year-old female patient who has had a history of kidney stones.? The patient had pain to her right flank last night that is achy and radiates to her right side.? The patient had some nausea at home this morning.? The patient had gone [facility] emergency room last night and was diagnosed with kidney stone.? She was discharged to return to [facility] this morning for recent pain.? The patient was given a shot of Toradol.? The patient was told that she needs to see Urology and they attempted to transfer a stainless is a patient stated she wanted to come here.? Abnormal labs H&H is 11.3 and 34.5 with no recent labs for comparison.? Sodium 136.? Glucose 165.? Abdominal x-ray was read as nonspecific abdomen status post cholecystectomy.? CT from last night on 08/19/2022 there is a 7 mm partially obstructing calculus in the mid right ureter with [id number] right hydronephrosis and proximal right hydroureter.? The patient was taken to OR but was unable to have a cystoscopy because she had eaten a full lunch today.? The patient was started on Cipro at [facility] she took a dose this morning.? Her blood pressure today is 100/57.? The patient was given IV fluids Levaquin and Cipro.? The patient is being admitted to observation status on the date of service of 08/20/2022. Hospital Course: Patient presented with abdominal pain was found to have a kidney stone patient was seen by urologist and had a cystoscopy, right retrograde pyelogram, right ureteroscopy, holmium laser lithotripsy, stone extraction, stent placement, patient seen by Urology patient is clinically stable will discharge the patient today. Status at Discharge Cognitive/behavioral status at discharge: Cystoscopy, right retrograde pyelogram, right ureteroscopy, holmium laser lithotripsy, stone extraction, stent placement Time Spent with Patient Time attestation: Total time spent providing and/or coordinating discharge services: Exam Narrative: Morbidly obese Patient is comfortable, NAD HEENT: eyes
== END 2022-08-21 13:20 | disposition home or self-care (01) ==
LOC: ANHED 14:25 → ANHSURGERY 14:34 → ANH3MED 18:48
PROVIDERS: Nurse Practitioner; Urology; Admitting Provider Urology; Emergency Provider Emergency Medicine; PCP Family Medicine; Visit Provider Urology
PROC: (CPT 52352; principal; 2022-08-20 15:30)
DX: N13.2 Hydronephrosis with renal and ureteral calculous obstruction (principal); N39.0 Urinary tract infection, site not specified; K42.9 Umbilical hernia without obstruction or gangrene; K76.0 Fatty (change of) liver, not elsewhere classified; J44.9 Chronic obstructive pulmonary disease, unspecified; E11.9 Type 2 diabetes mellitus without complications; E03.9 Hypothyroidism, unspecified; E55.9 Vitamin D deficiency, unspecified; Z90.49 Acquired absence of other specified parts of digestive tract; F10.90 Alcohol use, unspecified, uncomplicated; Z79.51 Long term (current) use of inhaled steroids; Z79.84 Long term (current) use of oral hypoglycemic drugs; Z87.891 Personal history of nicotine dependence; Z79.899 Other long term (current) drug therapy; Z83.3 Family history of diabetes mellitus
CPT/HCPCS: 52352; 52332; 36415; 74018; 74176; 74420; 80053; 81001; 82365; 82948; 83036; 83605; 83735; 84443; 85025; 87040; 87086; 88300; 96361; 96365; 96374; 96375; 96376; 99285; A9270; C1758; C1769; C2617; G0378; J0744; J1100; J2250; J2270; J2370; J2405; J2704; J3010; J7030; J7120

== ENCOUNTER 2022-08-23 08:18 | Observation (INO) | payer BC, SELFPAY ==
[2022-08-23] VITALS (14 sets, daily range): BP systolic 106–141; BP diastolic 60–82; PULSE 69–117; RESP 16–24; TEMP 36.2–36.7; O2SAT 93–99; BMI 45.3
--- NOTE | 2022-08-23 | ECHO_ITS ---
Patient Info Name: Siri Gonsales Age: 61 years : 1960 Gender: Female Ht: 62 in Wt: 229 lbs BSA: 2.19 m2 HR: 98 bpm BP: 132 / 71 mmHg Technical Quality: Fair Exam Date: 08/23/2022 3:57 PM Exam Location: [facility] Exam Room: 214 Patient Status: Inpatient Admit Date: 08/23/2022 Staff Ordering Physician: Shruthi Brunson NP Credentialing Specialist: Veronica Watkins RDCS Attending Provider: Sheri Melton MD Referring Physician: Nannette WALDRON; Exam Type: CA echo doppler color flow Study Info Indications - EDEMA C/O CHEST PAIN Complete two-dimensional, color flow and Doppler transthoracic echocardiogram is performed. Summary 1. Complete two-dimensional, color flow and Doppler transthoracic echocardiogram is performed. 2. Left ventricular chamber dimension is normal. 3. Left ventricular systolic function is normal, estimated at 65-70%. 4. The left ventricular diastolic function is grade I diastolic dysfunction. 5. E/e' 12 is mildly elevated. 6. Left atrial chamber dimension is mildly enlarged. 7. There is trace mitral valve regurgitation. 8. No pulmonary hypertension, estimated pulmonary arterial systolic pressure is 36 mmHg. 9. There is trivial to small circumferential pericardial effusion, with most located posteriorly measured at 1.0 cm. Left Ventricle E/e' 12 is mildly elevated. Left ventricular chamber dimension is normal. Left ventricular systolic function is normal, estimated at 65-70%. The left ventricular diastolic function is grade I diastolic dysfunction. Right Ventricle Right ventricular systolic function is normal and with normal TAPSE 2.4 cm. Right ventricular chamber dimension is normal. Left Atria Left atrial chamber dimension is mildly enlarged. Right Atria Right atrial chamber dimension is normal. Aortic Valve The aortic valve is trileaflet. There is no aortic valve stenosis. There is no aortic valve regurgitation. Pulmonic Valve There is no pulmonic regurgitation. Mitral Valve There is no mitral valve stenosis. There is trace mitral valve regurgitation. Tricuspid Valve There is no tricuspid valve regurgitation. No pulmonary hypertension, estimated pulmonary arterial systolic pressure is 36 mmHg. Pericardium/Pleural There is trivial to small circumferential pericardial effusion, with most located posteriorly measured at 1.0 cm. No cardiac tamponade. Inferior Vena Cava Normal inferior vena cava with >50% collapse upon inspiration consistent with normal right atrial pressure, 5 mmHg. Aorta The aortic root size at the sinus of Valsalva is normal. Left Ventricular Outflow Tract Name Value Normal LVOT 2D LVOT Diameter 2.0 cm LVOT Doppler LVOT Peak Gradient 8 mmHg LVOT Mean Gradient 4 mmHg LVOT VTI 26 cm LVOT VTI/AV VTI Ratio 0.9 LVOT Stroke Volume 83 ml LVOT CO 18.9 l/min LVOT CI 8.6 l/min/m2 Pulmonic Valve
--- NOTE | ~2022-08-23 | CT_ITS ---
EXAMINATION: CTA chest PE abdomen pel DATE: 08/23/2022 11:10 INDICATION: Shortness of breath. Status post recent ureteral stent for nephrolithiasis. TECHNIQUE: Computed tomography (CT) pulmonary angiogram of the chest was performed with 100 mL Omnipa que-350 intravenous contrast. Additional 3D reconstructions utilizing coronal maximum intensity proje ction (MIP) were performed. CT of the abdomen and pelvis was performed with intravenous contrast util izing the same contrast bolus following a short delay. Automated exposure control and iterative recon struction technique were employed. The dose-length product was 2207.65 mGy-cm. COMPARISON: CT abdomen pelvis dated 08/21/2022 FINDINGS: Chest: Excellent contrast opacification of the pulmonary arteries. There is mild streak artifact from dense contrast in the superior vena cava and right atrium. Mild scattered respiratory motion artifact which does not significantly limit evaluation. No pulmonary embolism. Mild pulmonary edema with small amou nt of smooth septal line thickening and minimal groundglass opacity at the bilateral lung bases. Radi ographs of discoid atelectasis/scarring at the lingula and right middle lobe. No pneumonia, pleural e ffusion or pneumothorax. Heart size is normal. No pericardial effusion. Enlargement of the central pu lmonary arteries consistent with pulmonary arterial hypertension. Thoracic aorta is normal in caliber with no dissection. No pathologically enlarged thoracic lymphadenopathy. Postoperative changes in th e left breast. Mild thoracic spondylosis with mild spondylosis. Which could be related to congestive heart failure with mild cardiomegaly. Abdomen/pelvis: Diffuse hepatic steatosis. Cholecystectomy clips the gallbladder fossa. Spleen, pancreas, left kidney and bilateral adrenal glands are normal. Right internal ureteral stent with loops formed in upper po le calyx and a bladder. There is persistent mild right hydroureter with resolution of prior hydroneph rosis. There is some stranding along the mid right ureter. Uterus and right adnexa are unremarkable. The left ovary is not visualized and could be surgically absent. There is extensive colonic diverticu losis without adjacent inflammatory change to suggest diverticulitis. No bowel obstruction. The appen danyelle is not visualized. No pericecal inflammatory change to suggest acute appendicitis. Small fat-cont aining umbilical hernia. Stable appearance of nonspecific mild stranding of the fat. The mesentery co nsistent with chronic mesenteric panniculitis. No free intraperitoneal gas or fluid. No pathologicall y enlarged abdominal or pelvic lymphadenopathy. IMPRESSION: 1. Lucent. 2. Mild pulmonary edema at the bilateral lung bases . 3. Enlargement of the central pulmonary arteries consistent with pulmonary arterial hypertension. 4. Residual mild right hydroureter and periureteral inflammatory stranding but with resolution of walter or right hydroureteronephrosis post right ureteral stone extraction and ureteral stent placement the latter in expected position. 5. Small fat-containing umbilical hernia. 6. Diffuse hepatic steatosis. Reviewed, dictated and finalized at location A. IMPRESSION: 1. Lucent. 2. Mild pulmonary edema at the bilateral lung bases . 3. Enlargement of the central pulmonary arteries consistent with pulmonary lyudmila rial hypertension. 4. Residual mild right hydroureter and periureteral inflammatory stranding but with resolution of prior right hydroureteronephrosis post right ureteral stone extraction and ureteral stent placement the latter in expected position. 5. Small fat-containing umbilical hernia. 6. Diffuse hepatic steatosis.
--- NOTE | ~2022-08-23 | XR_ITS ---
EXAMINATION: XR chest 2V DATE: 08/23/2022 08:56 INDICATION: Shortness of breath and chest tightness TECHNIQUE: AP and lateral views of the chest are obtained. COMPARISON: 07/02/2019 FINDINGS: There is a mild diffuse interstitial pattern. No pleural effusion or pneumothorax. The card iomediastinal silhouette is normal. There is moderate thoracic spondylosis. Surgical clips in the rig ht upper quadrant are likely from prior cholecystectomy. IMPRESSION: 1. Possible mild pulmonary edema. Reviewed, dictated and finalized at location B.
--- NOTE | ~2022-08-23 | XR_ITS ---
EXAMINATION: XR abdomen/kub 1V DATE: 08/23/2022 09:48 INDICATION: Abdominal distention. TECHNIQUE: A supine view of the abdomen on 2 radiographs was obtained. COMPARISON: CT abdomen and pelvis 08/21/2022 FINDINGS: There are no dilated loops of bowel. There is a right internal ureteral stent in expected p osition. Surgical clips in the right upper quadrant are likely from cholecystectomy. There are phlebo liths in the pelvis. IMPRESSION: 1. Right internal ureteral stent in expected position. No visible urolithiasis. 2. Normal bowel gas pattern. Reviewed, dictated and finalized at location D.
--- NOTE | 2022-08-23 08:27 | ECG_ITS ---
Measurements Intervals [place] Rate: 96 P: 53 TX: 123 QRS: 35 QRSD: 74 T: 16 QT: 341 QTc: 431 Interpretive Statements SINUS RHYTHM POSSIBLE RIGHT VENTRICULAR CONDUCTION DELAY [RSR (QR) IN V1/V2] COMPARED TO ECG 08/11/2020 07:38:25 NO SIGNIFICANT CHANGES Electronically Signed On 08-23-2022 12:25:27 CDT by Vandana Cole M.D.
[2022-08-23 08:40] LABS: Basophils Absolute Auto 0.1 K/mm3 (0.0-0.1); Basophils Percent Auto 0.6 % (0.2-1.2); Eosinophils Absolute Auto 0.2 K/mm3 (0-0.3); Eosinophils Percent Auto 2.1 % (0-4.4); Hematocrit 34.6 % (37.0-47.0); Hemoglobin 11.4 g/dL (12.0-15.0); Immature Granulocyte Absolute 0.02 K/mm3 (0.00-0.031); Immature Granulocyte Percent A 0.2 % (0-0.5); Lymphocytes Absolute Auto 1.66 K/mm3 (0.9-3.2); Lymphocytes Percent Auto 18.4 % (18.3-44.2); Mean Corpuscular HGB Conc 32.9 g/dl (32-36); Mean Corpuscular Hemoglobin 30.6 pg (26-34); Mean Platelet Volume 10.7 fl (7.4-10.4); Monocytes Absolute Auto 0.9 K/mm3 (0.1-0.6); Neutrophils Absolute Auto 6.2 K/mm3 (1.3-6.7); Neutrophils Percent Auto 68.7 % (45.5-73.1); Platelet Count Result 308 k/mm3 (150-375); Red Blood Count 3.72 M/mm3 (4.2-5.4); Red Cell Distribution Width 13.1 % (11.5-14.5)
[2022-08-23 08:57] LABS: Alanine Aminotransferase 24 U/L (6-35); Albumin Level 4.1 g/dL (3.5-5.1); Alkaline Phosphatase 56 U/L (38-126); Anion Gap 4 mmol/L (8-16); Aspartate Amino Transferase 46 U/L (14-36); Bilirubin,Total 0.5 mg/dL (0.2-1.3); Blood Urea Nitrogen 16 mg/dL (7-17); Calcium 9.7 mg/dL (8.4-10.2); Carbon Dioxide 29 mmol/L (22-30); Chloride 105 mmol/L (98-107); Estimated CRCL calculation 92 ml/min; Estimated Glomerular Filt Rate > 60; Glucose 97 mg/dL (65-110); Potassium 4.4 mmol/L (3.4-5.0); Sodium 138 mmol/L (137-145)
[2022-08-23 09:44] LABS: Lipase 81 U/L (23-300)
[2022-08-23 09:58] LABS: NT Pro B Type Natriuretic Pept 554 pg/mL (19.9-100)
[2022-08-23 09:59] LABS: Troponin I < 0.012 ng/mL (0.000-0.034)
[2022-08-23] MEDS: ONDANSETRON INJ 4 MG/2 ML VIAL IV PUSH (10:08)
[2022-08-23] MEDS: NITROGLYCERIN SL 0.4 MG TABLET SUBLINGUAL (10:08)
--- NOTE | 2022-08-23 10:11 | PC.NURSE ---
1008: 0.4 SL nitro given 11/29, 138/82
--- NOTE | 2022-08-23 10:18 | PC.NURSE ---
1018: 0.4 SL nitro given, 11/29, 131/72
[2022-08-23 10:41] LABS: Appearance Urine Clear (Clear); Bilirubin Urine Negative (Negative); Blood Urine 3+ (Negative); Glucose Urine UA Negative (Negative); Ketones Urine Negative (Negative); Leukocyte Esterase Ur 1+ LEU/UL (Negative); Nitrate Urine Negative (Negative); Protein Urine 2+ mg/dL (Negative); Specific Grav Ur 1.006 (1.001-1.035); Urobilinogen Urine 0.2 mg/dL (<2.0); pH Urine 7.5 (5.0-9.0)
[2022-08-23 10:42] LABS: Add Urine Microscopic? YES; Color Urine Yellow (Yellow)
[2022-08-23 10:50] LABS: Bacteria Urine None Seen /hpf; Non Pathogenic Casts 0-2; RBC Urine >100 /hpf (0-2); Squamous Epithelial Cell Urine None seen /hpf (Few)
--- NOTE | 2022-08-23 11:07 | ED.SOB ---
HPI - SOB/Dyspnea General Chief Complaint: Shortness of Breath/Dyspnea Stated Complaint: Shortness of breath, chest pain Time Seen by Provider: 08/23/22 09:09 Source: patient, RN notes reviewed and old records reviewed Mode of arrival: ambulatory Limitations: no limitations History of Present Illness HPI Narrative: This is a 61 year old female with history of atrial fibrillation and kidney stone who presents for evaluation of shortness of breath. She states on 08/13/22 she was evaluation for chest pain, heart pounding and shortness of breath. PAtient reports she had heart rate in 200s but it slowed down by the time she got to ER. She was started on metoprolol at that time and follow up with PCP and chemical engineering technician. She also reports a few days later she was found to have kidney stone and she required a stent placement. She states she received IV fluids at time. This morning she developed shortness of breath, abdominal bloating, distension, belching and chest pain. She thinks she was given a lot of IV fluids. She denies heart disease. She has chronic cough. Related Data Home Medications Medication Instructions Recorded Confirmed multivitamin 1 tablet PO DAILY 05/25/19 08/23/22 metformin 500 mg tablet,extended 500 mg PO DAILY 01/13/22 08/23/22 release 24 hr celecoxib 100 mg capsule See Rx Instructions .Route 08/20/22 08/23/22 .COMPLEX PRN Pain fenofibrate 160 mg tablet 160 mg PO DAILY 08/20/22 08/23/22 metoprolol tartrate 25 mg tablet 12.5 mg PO BID 08/20/22 08/23/22 oxybutynin chloride 5 mg tablet 5 mg PO BID 08/23/22 08/23/22 Allergies Allergy/AdvReac Type Severity Reaction Status Date / Time Penicillins Allergy Mild Unknown Verified 08/23/22 08:29 cephalexin Allergy Unknown Unknown Verified 08/23/22 08:29 codeine AdvReac Mild Palpitation Verified 08/23/22 08:29 s CEPHALEXIN MONOHYDRATE Allergy Unknown UNKNOWN Uncoded 08/23/22 08:29 REACTION CHILD Review of Systems Constitutional: Constitutional: Reports fatigue and Denies weakness Cardiovascular: Cardiovascular: Reports chest pain, Denies syncope, Reports rapid heart rate, Reports irregular heart rhythm, Denies leg edema and Reports dyspnea Respiratory: Respiratory: Denies chest congestion, Reports cough, Denies hemoptysis, Denies excessive phlegm production and Reports dyspnea Gastrointestinal: Gastrointestinal: Denies abdominal pain, Reports bloating, Denies hematochezia, Denies diarrhea and Denies vomiting Genitourinary: Genitourinary: Denies hematuria and Denies dysuria Musculoskeletal: Musculoskeletal: Denies joint swelling, Denies loss of height and Denies muscle weakness Neurologic: Denies syncope, Denies focal weakness and Denies weakness PMF Past Medical History Medical History Acute sinus infection Bilateral lower extremity edema BMI 40.0-44.9, adult COPD (chronic obstructive pulmonary disease) Diabetes type 2, controlled Elevated glucose Establishing care with new doctor, encounter for Fatigue History of frequent ear infections Hospital discharge follow-up Hospital discharge follow-up (~08/21/22) Hypothyroidism Otitis media Pain of left calf Palpitations Right shoulder pain Sinus tachycardia Tachycardia Tinnitus UTI (urinary tract infection) Vitamin D deficiency, unspecified Vitamin deficiency Surgical History Surgical History H/O breast surgery breast cancer 2014 H/O colonoscopy with polypectomy H/O lumpectomy H/O: hysterectomy History of appendectomy History of renal stent Hx of cholecystectomy Tear of right rotator cuff Right rotator cuff repair July 2020 Family History Family History Father Family history of diabetes mellitus in first degree relative Congestive heart failure Mother Family history of diabetes mellitus in first deg
--- NOTE | 2022-08-23 13:05 | PM.IMHP ---
H&P: HPI History of Present Illness Date/Time: 08/23/22 13:05 Chief Complaint: Shortness of breath Narrative: This is the 61-year-old female patient who underwent a cystoscopy right retrograde pyelogram right ureteroscopy holmium laser lithotripsy stone extraction and stent placement on 08/21/2022. The patient was then discharged to home. The patient stated she felt like she gained 10 lb since then. She stated that she is bloated and her feet are swollen. The patient found that her heart rate was in the 200s on 08/13/2022 and was started on metoprolol. This morning the patient developed shortness of breath and abdominal bloating distension and some chest pain. She thinks that she may have fluid overload. Chest abdominal pelvis CT was read as the following. [place]. 2. Mild pulmonary edema at the bilateral lung bases . 3. Enlargement of the central pulmonary arteries consistent with pulmonary arterial hypertension. 4. Residual mild right hydroureter and periureteral inflammatory stranding but with resolution of prior right hydroureteronephrosis post right ureteral stone extraction and ureteral stent placement the latter in expected position. 5. Small fat-containing umbilical hernia. 6. Diffuse hepatic steatosis. Chest x-ray was read as possible mild pulmonary edema. The patient was given nitroglycerin in the emergency room Ned. Patient's H&H is 11.4 and 34.6 which is her baseline. Troponins are nonreactive x2. BNP is 554. The patient had 1+ urine leukocyte esterase rbc's and 6-10 wbc's. However the patient recently had a procedure to remove her kidney stone. The patient is being admitted to observation status on the date of service 08/23/2022. Review of Systems Review of Systems: All systems reviewed & are unremarkable except as noted in HPI and below Constitutional: Constitutional: Reports as per HPI and Reports no additional constitutional complaints Eyes: Eyes: Reports as per HPI and Reports no additional eye complaints ENT: Reports system reviewed and no additional complaints, except as documented and Reports Normal hearing present Cardiovascular: Cardiovascular: Reports no additional cardiovascular complaints Respiratory: Respiratory: Reports no additional respiratory complaints and Reports no additional respiratory complaints Gastrointestinal: Gastrointestinal: Reports as per HPI and Reports no additional gastrointestinal complaints Musculoskeletal: Musculoskeletal: Reports no additional musculoskeletal complaints Integumentary/Breasts: Skin/Breast: Reports system reviewed and no additional complaints, except as docu and Reports as per HPI Neurologic: Reports system reviewed and no additional complaints, except as documented, Reports as per HPI and Reports Normal hearing present Psychiatric: Psychiatric: Reports no additional psychiatric complaints and Reports as per HPI Endocrine: Endocrine: Reports no additional endocrine complaints Hematologic/Lymphatic: Hematologic/Lymphatic: Reports no additional hematologic/lymphatic complaints Allergic/Immunologic: Allergic/Immunologic: Reports no additional allergic/immunologic complaints PMFSH Past Medical History Medical History Acute sinus infection Bilateral lower extremity edema BMI 40.0-44.9, adult COPD (chronic obstructive pulmonary disease) Diabetes type 2, controlled Elevated glucose Establishing care with new doctor, encounter for Fatigue History of frequent ear infections Hospital discharge follow-up Hospital discharge follow-up (~08/21/22) Hypothyroidism Otitis media Pain of left calf Palpitations Right shoulder pain Sinus tachycardia Tachycardia Tinnitus UTI (urinary tract infection) Vitamin D deficiency, unspecified Vitamin deficiency Surgical History Surgical History H/O breast surgery breast cancer 2014 H/O colonoscopy with
[2022-08-23] MEDS: FUROSEMIDE INJ 40 MG/4 ML VIAL IV PUSH ×2 (13:14→20:30)
[2022-08-23 13:28] LABS: Troponin I < 0.012 ng/mL (0.000-0.034)
--- NOTE | 2022-08-23 13:40 | ADMGEN ---
This patient, Siri Gonsales, was admitted to IMU Room 214-01. Patient/family oriented to hospital policies and general routines including ID bracelet, bed and alarms, visiting hours, pain management, procedures, bathroom and other care routines, personal items, smoking policy, room service/diet, and visiting hours. Information on how to activate the Rapid Response Team has been discussed. Patient/Family are encouraged to report perceived risks to care and to ask questions if they do not understand what they are told or what they should do.
[2022-08-23] MEDS: ACETAMINOPHEN 325 MG TABLET 650 MG PO ×2 (15:44→20:31)
[2022-08-23 16:01] LABS: Troponin I < 0.012 ng/mL (0.000-0.034)
[2022-08-23] MEDS: CALCIUM CARBONATE (TUMS) 500 MG (200 MG ELEMENTAL) PO (17:50)
[2022-08-23] MEDS: oxyBUTYnin CHLORIDE 5 MG TABLET PO (17:50)
[2022-08-23] MEDS: CELECOXIB 100 MG CAPSULE BY MOUTH (17:51)
[2022-08-23 20:12] LABS: Glucose Point of Care 127 mg/dl (65-105)
[2022-08-23] MEDS: CIPROFLOXACIN 500 MG TAB PO (20:30)
[2022-08-23] MEDS: METOPROLOL TARTRATE 12.5 MG TABLET PO (20:30)
[2022-08-24] VITALS (8 sets, daily range): BP systolic 99–111; BP diastolic 48–58; PULSE 72–88; RESP 14–20; TEMP 36.4–36.7; O2SAT 92–98
[2022-08-24] MEDS: ACETAMINOPHEN 325 MG TABLET 650 MG PO ×2 (04:52→12:42)
[2022-08-24 05:20] LABS: Basophils Percent Auto 0.5 % (0.2-1.2); Eosinophils Absolute Auto 0.2 K/mm3 (0-0.3); Eosinophils Percent Auto 3.6 % (0-4.4); Hematocrit 34.6 % (37.0-47.0); Hemoglobin 11.2 g/dL (12.0-15.0); Immature Granulocyte Absolute 0.03 K/mm3 (0.00-0.031); Immature Granulocyte Percent A 0.5 % (0-0.5); Lymphocytes Absolute Auto 1.57 K/mm3 (0.9-3.2); Lymphocytes Percent Auto 23.9 % (18.3-44.2); Mean Corpuscular HGB Conc 32.4 g/dl (32-36); Mean Corpuscular Hemoglobin 29.9 pg (26-34); Mean Corpuscular Volume 92.3 fl (80-100); Mean Platelet Volume 10.6 fl (7.4-10.4); Monocytes Absolute Auto 0.8 K/mm3 (0.1-0.6); Monocytes Percent Auto 11.7 % (2.6-8.5); Neutrophils Absolute Auto 3.9 K/mm3 (1.3-6.7); Neutrophils Percent Auto 59.8 % (45.5-73.1); Platelet Count Result 317 k/mm3 (150-375); Red Blood Count 3.75 M/mm3 (4.2-5.4); Red Cell Distribution Width 13.2 % (11.5-14.5); White Blood Count 6.6 K/mm3 (4.5-10.0)
[2022-08-24 05:34] LABS: Alanine Aminotransferase 22 U/L (6-35); Albumin Level 3.9 g/dL (3.5-5.1); Alkaline Phosphatase 59 U/L (38-126); Anion Gap 6 mmol/L (8-16); Aspartate Amino Transferase 27 U/L (14-36); Bilirubin,Total 0.5 mg/dL (0.2-1.3); Blood Urea Nitrogen 15 mg/dL (7-17); Calcium 8.9 mg/dL (8.4-10.2); Carbon Dioxide 33 mmol/L (22-30); Chloride 99 mmol/L (98-107); Estimated CRCL calculation 81 ml/min; Estimated Glomerular Filt Rate > 60; Glucose 101 mg/dL (65-110); Potassium 3.7 mmol/L (3.4-5.0); Sodium 138 mmol/L (137-145)
[2022-08-24] MEDS: LEVOTHYROXINE SODIUM 150 MCG TABLET PO (06:09)
[2022-08-24 08:23] LABS: Glucose Point of Care 110 mg/dl (65-105)
[2022-08-24] MEDS: FUROSEMIDE INJ 40 MG/4 ML VIAL IV PUSH (10:08)
[2022-08-24] MEDS: CHOLECALCIFEROL 1,000 UNITS TABLET 4000 UNITS PO (10:08)
[2022-08-24] MEDS: MULTIVITAMINS THERAPEUTIC TAB (*BKC) 1 TABLET PO (10:08)
[2022-08-24] MEDS: CIPROFLOXACIN 500 MG TAB PO (10:08)
[2022-08-24] MEDS: METOPROLOL TARTRATE 12.5 MG TABLET PO (10:08)
[2022-08-24] MEDS: oxyBUTYnin CHLORIDE 5 MG TABLET PO (10:08)
[2022-08-24] MEDS: FENOFIBRATE 160 MG TABLET PO (10:09)
--- NOTE | 2022-08-24 11:55 | PM.IMPN ---
Progress Note: A&P Assessment and Plan (1) Chest pain: Code(s): R07.9 - Chest pain, unspecified Status: Acute Assessment and Plan: Chest/abdomen/pelvic CT lucent. 2. Mild pulmonary edema at the bilateral lung bases . 3. Enlargement of the central pulmonary arteries consistent with pulmonary arterial hypertension. 4. Residual mild right hydroureter and periureteral inflammatory stranding but with resolution of prior right hydroureteronephrosis post right ureteral stone extraction and ureteral stent placement the latter in expected position. 5. Small fat-containing umbilical hernia. 6. Diffuse hepatic steatosis. Troponin is nonreactive x2. An echo has been ordered Cardiology has been consulted (2) Fluid overload: Code(s): E87.70 - Fluid overload, unspecified Status: Acute Assessment and Plan: An echo has been ordered Continue with IV Lasix She only has trace edema and her BNP is only 554 Could possibly be fluid overload (3) UTI (urinary tract infection): Code(s): N39.0 - Urinary tract infection, site not specified Status: Acute Assessment and Plan: Continue with Cipro Urine culture and blood cultures are pending. (4) Ureteral stone: Code(s): N20.1 - Calculus of ureter Status: Acute Assessment and Plan: See operative report from 08/21/2022 Cystoscopy, right retrograde pyelogram, right ureteroscopy, holmium laser lithotripsy, stone extraction, stented (5) COPD (chronic obstructive pulmonary disease): Code(s): J44.9 - Chronic obstructive pulmonary disease, unspecified Status: Acute Assessment and Plan: Change albuterol to Xopenex inhaler as the patient becomes tachycardic at time (6) Hypothyroidism: Code(s): E03.9 - Hypothyroidism, unspecified Status: Acute Assessment and Plan: Continue with levothyroxine Thyroid levels were from 08/21/2022 were within normal limits. (7) Diabetes type 2, controlled: Code(s): E11.9 - Type 2 diabetes mellitus without complications Status: Acute Assessment and Plan: Metformin is being held at this time Accu-Cheks AC and HS with sliding scale insulin and hypoglycemic protocol. A1c was 5.9. (8) Mixed hyperlipidemia: Code(s): E78.2 - Mixed hyperlipidemia Status: Acute Assessment and Plan: Continue with fenofibrate (9) Sinus tachycardia: Code(s): R00.0 - Tachycardia, unspecified Status: Acute Assessment and Plan: Continue with metoprolol Subjective Date/time seen: 08/24/22 11:55 Interval history: 61 year old female with PMH COPD, hypothyroidism, diabetes here with SOB, abdominal distention and chest pain. No overnight events noted. No chest pain or shortness of breath. No nausea, vomiting or diarrhea. No fevers or chills. Review of Systems Review of Systems: 12 point review of systems was assessed and was negative except as noted in the HPI Exam Narrative: General: No acute distress, alert and oriented per baseline HEENT: Atraumatic, normocephalic, mucous membranes moist CV: Regular rate and rhythm, S1, S2 Lungs: Clear to auscultation bilaterally, no rales or crackles noted, no wheezes, good air entry Abdomen: Soft, nontender, nondistended Extremities: Normal to inspection Skin: No rashes noted, no lesions or wounds seen Psych: Euthymic, normal affect Objective Data Vital Signs Vital Signs: Vital Signs - 24 hr 08/23/22 12:06 08/23/22 13:14 08/23/22 12:00 Temperature Pulse Rate 88 89 Respiratory Rate 18 18 Blood Pressure 131/72 132/71 Pulse Oximetry 99 93 99 Oxygen Delivery Room Air 08/23/22 13:53 08/23/22 14:00 08/23/22 14:00 Temperature 97.9 F Pulse Rate 86 82 Respiratory Rate 16 Blood Pressure 130/69 Pulse Oximetry 95 Oxygen Delivery Room Air 08/23/22 16:00 08/23/22 16:00 08/23/22 16:00 Temperature 97.1 F L Pulse Rate 103 H 91 Respiratory Ra
[2022-08-24 12:04] LABS: Glucose Point of Care 132 mg/dl (65-105)
[2022-08-24] MEDS: CALCIUM CARBONATE (TUMS) 500 MG (200 MG ELEMENTAL) PO (12:43)
--- NOTE | 2022-08-24 13:46 | PM.CNCAR ---
Assessment and Plan Assessment and plan (1) Acute diastolic heart failure: Code(s): I50.31 - Acute diastolic (congestive) heart failure Status: Acute Assessment and Plan: Became fluid overloaded after her recent procedure. Echo with preserved LVEF, grade 1 diastolic dysfunction. No significant valvular disease. Improving with intermittent IV Lasix. Continue IV Lasix for today. Monitor strict I/Os. I do not anticipate her needing long-term Lasix therapy. History of Present Illness History of Present Illness Consult date/time: 08/24/22 13:46 Requesting physician: Shruthi Brunson NP Consult reason: congestive heart failure Reason For Visit: CHF Narrative: We are consulted for acute diastolic heart failure exacerbation. This is a 61-year-old female who recently underwent a cystoscopy, right retrograde pyelogram, right ureteroscopy, holmium laser lithotripsy, stone extraction, stent placement on 08/21. After getting home from the procedure, patient reports gaining 10 lbs. [place] bloated, had shortness of breath, some swelling in her lower extremities. CXR showing mild pulmonary edema. Patient admitted with decompensated diastolic heart failure. Started on IV Lasix. Echocardiogram done 08/23 shows LVEF 65-70%, grade 1 diastolic dysfunction, trivial-small pericardial effusion. EKG shows sinus rhythm without ischemic changes. Troponins negative. BNP elevated at 554. Feels better after getting IV Lasix. Review of Systems Review of Systems: All systems reviewed & are unremarkable except as noted in HPI and below (HPI) PMFSH Past Medical History Medical History Acute sinus infection Bilateral lower extremity edema BMI 40.0-44.9, adult COPD (chronic obstructive pulmonary disease) Diabetes type 2, controlled Elevated glucose Establishing care with new doctor, encounter for Fatigue History of frequent ear infections Hospital discharge follow-up Hospital discharge follow-up (~08/21/22) Hypothyroidism Otitis media Pain of left calf Palpitations Right shoulder pain Sinus tachycardia Tachycardia Tinnitus UTI (urinary tract infection) Vitamin D deficiency, unspecified Vitamin deficiency Surgical History Surgical History H/O breast surgery breast cancer 2015 H/O colonoscopy with polypectomy H/O lumpectomy H/O: hysterectomy History of appendectomy History of renal stent Hx of cholecystectomy Tear of right rotator cuff Right rotator cuff repair July 2020 Family History Family History Father Family history of diabetes mellitus in first degree relative Congestive heart failure Mother Family history of diabetes mellitus in first degree relative Sibling Family history of lung cancer Family history of diabetes mellitus in first degree relative Social History Social History Social History: 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 Code status full code Smoking packs per day: 0.5 Smoking cigarettes per day: 10.0 Years smoked: 47 Smoking pack-years: 23.50 Smoking status: Former smoker Tobacco type: cigarettes Second hand tobacco smoke exposure: No Smoking end date: 08/13/22 Alcohol intake: current Drinks per week: 5 Substance use: never Substance use type: does not use Last use: hasn't drank in 2 weeks Lack of Transportation: No Lack of Food: Never True Current Housing: I Have Housing Concerned About Future Housing: No Difficulty Paying Gas/Electric Bills: No Difficulty Paying for Meds: No Currently Unemployed: No Education: High School Diploma/GED Difficulty w/ Childcare or Family Care: No Living arrangements: with family Occupation/Education: unemployed Gender identity (i
--- NOTE | 2022-08-24 14:46 | PM.DS ---
DS: Admitting Diagnosis Discharge Date 08/24/22 Admitting Diagnosis heart failure exacerbation DS: Discharge Diagnosis Discharge Diagnosis (1) Chest pain: Code(s): R07.9 - Chest pain, unspecified Status: Acute Assessment and Plan: Chest/abdomen/pelvic CT lucent. 2. Mild pulmonary edema at the bilateral lung bases . 3. Enlargement of the central pulmonary arteries consistent with pulmonary arterial hypertension. 4. Residual mild right hydroureter and periureteral inflammatory stranding but with resolution of prior right hydroureteronephrosis post right ureteral stone extraction and ureteral stent placement the latter in expected position. 5. Small fat-containing umbilical hernia. 6. Diffuse hepatic steatosis. Troponin is nonreactive x2. An echo has been ordered Cardiology has been consulted (2) Fluid overload: Code(s): E87.70 - Fluid overload, unspecified Status: Acute Assessment and Plan: An echo has been ordered Continue with IV Lasix She only has trace edema and her BNP is only 554 Could possibly be fluid overload (3) UTI (urinary tract infection): Code(s): N39.0 - Urinary tract infection, site not specified Status: Acute Assessment and Plan: Continue with Cipro Urine culture and blood cultures are pending. (4) Ureteral stone: Code(s): N20.1 - Calculus of ureter Status: Acute Assessment and Plan: See operative report from 08/21/2022 Cystoscopy, right retrograde pyelogram, right ureteroscopy, holmium laser lithotripsy, stone extraction, stented (5) COPD (chronic obstructive pulmonary disease): Code(s): J44.9 - Chronic obstructive pulmonary disease, unspecified Status: Acute Assessment and Plan: Change albuterol to Xopenex inhaler as the patient becomes tachycardic at time (6) Hypothyroidism: Code(s): E03.9 - Hypothyroidism, unspecified Status: Acute Assessment and Plan: Continue with levothyroxine Thyroid levels were from 08/21/2022 were within normal limits. (7) Diabetes type 2, controlled: Code(s): E11.9 - Type 2 diabetes mellitus without complications Status: Acute Assessment and Plan: Metformin is being held at this time Accu-Cheks AC and HS with sliding scale insulin and hypoglycemic protocol. A1c was 5.9. (8) Mixed hyperlipidemia: Code(s): E78.2 - Mixed hyperlipidemia Status: Acute Assessment and Plan: Continue with fenofibrate (9) Sinus tachycardia: Code(s): R00.0 - Tachycardia, unspecified Status: Acute Assessment and Plan: Continue with metoprolol DS: Summary Hospital Course Hospital Course: 61 year old female with PMH COPD, hypothyroidism, diabetes here with SOB, abdominal distention and chest pain. Cardiology was consulted, agreed with IV diuresis, symptoms resolved. She was discharged in stable condition with outpatient follow up. She was sent home on lasix 20 mg tabs for 2 days and a repeat BMP in 3 days. Time Spent with Patient Time attestation: Total time spent providing and/or coordinating discharge services: Exam Narrative: General: No acute distress, alert and oriented per baseline HEENT: Atraumatic, normocephalic, mucous membranes moist CV: Regular rate and rhythm, S1, S2 Lungs: Clear to auscultation bilaterally, no rales or crackles noted, no wheezes, good air entry Abdomen: Soft, nontender, nondistended Extremities: Normal to inspection Skin: No rashes noted, no lesions or wounds seen Psych: Euthymic, normal affect DS: Data Data Completed and Pending Labs on day of discharge: Labs from last 24 hours 08/24/22 08/24/22 08/24/22 11:59 07:37 05:01 WBC RBC Hgb Hct MCV MCH MCHC RDW Plt Count MPV Immature Gran % (Auto) Neut % (Auto) Lymph % (Auto) [place] % (Auto) Eos % (Auto) Baso % (Auto) Lymph # (Auto) [place] # (Auto) Eos # (A
== END 2022-08-24 15:51 | disposition home or self-care (01) ==
LOC: ANHED 09:09 → ANHIMU 13:32
PROVIDERS: Admitting Provider Family Medicine; Emergency Provider General Practice; PCP Family Medicine; Visit Provider Student in an Organized Health Care Education/Training Program
DX: R07.9 Chest pain, unspecified (principal); J81.1 Chronic pulmonary edema; K76.0 Fatty (change of) liver, not elsewhere classified; E87.70 Fluid overload, unspecified; N39.0 Urinary tract infection, site not specified; N20.1 Calculus of ureter; J44.9 Chronic obstructive pulmonary disease, unspecified; E03.9 Hypothyroidism, unspecified; E11.9 Type 2 diabetes mellitus without complications; E78.2 Mixed hyperlipidemia; R00.0 Tachycardia, unspecified; R06.02 Shortness of breath; R14.0 Abdominal distension (gaseous); I50.31 Acute diastolic (congestive) heart failure; R91.8 Other nonspecific abnormal finding of lung field; E55.9 Vitamin D deficiency, unspecified; R53.83 Other fatigue; F10.90 Alcohol use, unspecified, uncomplicated; R14.2 Eructation; R05.9 Cough, unspecified; Z87.891 Personal history of nicotine dependence; Z79.84 Long term (current) use of oral hypoglycemic drugs; Z79.899 Other long term (current) drug therapy
CPT/HCPCS: 36415; 71046; 71275; 74018; 74177; 80053; 81001; 82948; 83690; 83880; 84484; 85025; 87086; 93005; 93306; 96374; 96376; 99285; A9270; G0378; J1940; J2405; Q9967

== ENCOUNTER 2023-02-28 00:22 | Day surgery (SDC) | payer BC, SELFPAY ==
[2023-02-18 15:15] VITALS: BMI 40.9
[2023-02-28 11:47] VITALS: BP 125/62; PULSE 83; RESP 18; TEMP 36.1; O2SAT 99
[2023-02-28] MEDS: LACTATED RINGERS 1,000 ML 150 ML IV CONT (12:02)
[2023-02-28 12:03] LABS: Glucose Point of Care 76 mg/dl (65-105)
--- NOTE | 2023-02-28 12:35 | WPDANESEPPF ---
Anes - Initial Pre Proc Eval Procedure: Operation Date: 02/28/23 13:00 Proposed Procedures p Esophagogastroduodenoscopy & Colonoscopy - Gui Blanchard MD Date/Time: 02/28/23 12:35 Surgeon: Gui Blanchard MD Pre Op Diagnosis: HX colon polyps, Eructation Patient Data Age: 62 Gender: F Height: 1.56 m Weight: 99.8 kg Last Vital Signs Temp 97 F L 02/28/23 11:47 Pulse 83 02/28/23 11:47 Resp 18 02/28/23 11:47 BP 125/62 02/28/23 11:47 Pulse Ox 99 02/28/23 11:47 O2 Del Method Room Air 02/28/23 11:47 Allergies Allergy/AdvReac Type Severity Reaction Status Date / Time Penicillins Allergy Mild Unknown Verified 02/28/23 11:45 cephalexin Allergy Unknown Unknown Verified 02/28/23 11:45 codeine AdvReac Mild Palpitation Verified 02/28/23 11:45 s CEPHALEXIN MONOHYDRATE Allergy Unknown UNKNOWN Uncoded 02/28/23 11:45 REACTION CHILD Home Medications Medication Instructions Recorded Confirmed Type multivitamin 1 tablet PO DAILY 05/25/19 02/18/23 History cholecalciferol (vitamin D3) 100 100 mcg PO DAILY #30 caps 11/15/19 02/18/23 Rx mcg (4,000 unit) capsule metformin 500 mg tablet,extended 500 mg PO DAILY 01/13/22 02/18/23 History release 24 hr albuterol sulfate 90 mcg/actuation See Rx Instructions .Route 03/23/22 02/18/23 Rx aerosol inhaler .COMPLEX #20.1 grams celecoxib 100 mg capsule See Rx Instructions .Route 08/20/22 02/18/23 History .COMPLEX PRN Pain rivaroxaban 20 mg tablet (Xarelto) 20 mg PO DAILY 11/25/22 02/28/23 History fenofibrate 160 mg tablet 160 mg PO DAILY #90 tabs 12/08/22 02/18/23 Rx Unithroid 125 mcg tablet See Rx Instructions .Route 12/14/22 02/28/23 Rx (levothyroxine) .COMPLEX #90 tabs metoprolol succinate 25 mg 12.5 mg PO BID 02/18/23 02/18/23 History tablet,extended release 24 hr Laboratory Tests 02/28/23 11:58 POC Capillary Glucose 76 mg/dl (65-105) Patient hx anesthesia problems: none Family hx anesthesia problems: none Results Review: All pre-operative results and documents have been reviewed as part of the pre-operative evaluation. [facility] Past Medical History Medical History (Updated 01/13/23 @ 09:14 by Darryl Valdez MD) Acute sinus infection Bilateral lower extremity edema BMI 40.0-44.9, adult Colon cancer screening COPD (chronic obstructive pulmonary disease) Dehydration Diabetes type 2, controlled Elevated glucose Establishing care with new doctor, encounter for Fatigue History of frequent ear infections Hospital discharge follow-up Hospital discharge follow-up (~08/21/22) Hypotension Hypothyroidism Otalgia of both ears Otitis media Pain of left calf Palpitations Right shoulder pain Sinus tachycardia Tachycardia Tinnitus UTI (urinary tract infection) Vitamin D deficiency, unspecified Vitamin deficiency Surgical History Surgical History H/O breast surgery breast cancer 2014 H/O colonoscopy with polypectomy H/O lumpectomy H/O: hysterectomy History of appendectomy History of renal stent Hx of cholecystectomy Tear of right rotator cuff Right rotator cuff repair July 2020 Family History Family History Father Family history of diabetes mellitus in first degree relative Congestive heart failure Mother Family history of diabetes mellitus in first degree relative Sibling Family history of lung cancer Family history of diabetes mellitus in first degree relative Social History Social History Social History: 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 Code status full code Smoking packs per day: 0.5 Smoking cigarettes per day: 10.0 Years smoked: 47 Smoking pack-years: 23.50 Smoking status: Former smoker Tobacco type: ciga
[2023-02-28] MEDS: SIMETHICONE ORAL SUSPENSION 20 MG/0.3 ML 30 ML BOTTLE 0.6 ML IRRIGATION (13:22)
--- NOTE | 2023-02-28 13:22 | SUR.OPER ---
EGD: [id number] COLON: 1316
--- NOTE | 2023-02-28 13:35 | SUR.OPER ---
Dr. Blanchard aware of positive H. Pylori
[2023-02-28 13:37] VITALS: BP 106/58; PULSE 86; RESP 22; O2SAT 99
[2023-02-28 13:47] VITALS: BP 117/53; PULSE 82; RESP 20; O2SAT 99
[2023-02-28 13:57] VITALS: BP 118/64; PULSE 82; RESP 20; O2SAT 97
--- NOTE | 2023-03-01 10:38 | PM.HPGS ---
History of Present Illness History of Present Illness Consent: Risks, benefits, and alternatives have been discussed and questions answered. Patient agrees to proceed with procedure. Chief complaint: HX colon polyps, Eructation Narrative: Siri Gonsales is a 62 year old female been troubled by a great deal of belching for several months. She denies dysphagia. She gets occasional heartburn. She has not lost weight. Review of Systems Review of Systems: All systems reviewed & are unremarkable except as noted in HPI and below PMFSH Past Medical History Medical History Acute sinus infection Bilateral lower extremity edema BMI 40.0-44.9, adult Colon cancer screening COPD (chronic obstructive pulmonary disease) Dehydration Diabetes type 2, controlled Elevated glucose Establishing care with new doctor, encounter for Fatigue History of frequent ear infections Hospital discharge follow-up Hospital discharge follow-up (~08/21/22) Hypotension Hypothyroidism Otalgia of both ears Otitis media Pain of left calf Palpitations Right shoulder pain Sinus tachycardia Tachycardia Tinnitus UTI (urinary tract infection) Vitamin D deficiency, unspecified Vitamin deficiency Surgical History Surgical History H/O breast surgery breast cancer 2014 H/O colonoscopy with polypectomy H/O lumpectomy H/O: hysterectomy History of appendectomy History of renal stent Hx of cholecystectomy Tear of right rotator cuff Right rotator cuff repair July 2020 Family History Family History Father Family history of diabetes mellitus in first degree relative Congestive heart failure Mother Family history of diabetes mellitus in first degree relative Sibling Family history of lung cancer Family history of diabetes mellitus in first degree relative Social History Social History Social History: 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 Code status full code Smoking packs per day: 0.5 Smoking cigarettes per day: 10.0 Years smoked: 47 Smoking pack-years: 23.50 Smoking status: Former smoker Tobacco type: cigarettes Second hand tobacco smoke exposure: No Smoking end date: 08/13/22 Alcohol intake: current Drinks per week: 5 Substance use: never Substance use type: does not use Last use: hasn't drank in 2 weeks Lack of Transportation: No Lack of Food: Never True Current Housing: I Have Housing Concerned About Future Housing: No Difficulty Paying Gas/Electric Bills: No Difficulty Paying for Meds: No Currently Unemployed: No Education: High School Diploma/GED Difficulty w/ Childcare or Family Care: No Living arrangements: with family Occupation/Education: unemployed Gender identity (if verbalized by the patient): Female Spiritual care concerns: No Meds Home Medications and Allergies Home Medications Medication Instructions Recorded Confirmed Type multivitamin 1 tablet PO DAILY 05/25/19 02/18/23 History cholecalciferol (vitamin D3) 100 100 mcg PO DAILY #30 caps 11/15/19 02/18/23 Rx mcg (4,000 unit) capsule metformin 500 mg tablet,extended 500 mg PO DAILY 01/13/22 02/18/23 History release 24 hr albuterol sulfate 90 mcg/actuation See Rx Instructions .Route 03/23/22 02/18/23 Rx aerosol inhaler .COMPLEX #20.1 grams celecoxib 100 mg capsule See Rx Instructions .Route 08/20/22 02/18/23 History .COMPLEX PRN Pain rivaroxaban 20 mg tablet (Xarelto) 20 mg PO DAILY 11/25/22 02/28/23 History fenofibrate 160 mg tablet 160 mg PO DAILY #90 tabs 12/08/22 02/18/23 Rx Unithroid 125 mcg tablet See Rx Instructions .Route 12/14/22 02/28/23 Rx (levothyroxine) .COMPLEX #90 tabs metoprolol succina
== END 2023-02-28 14:13 | disposition home or self-care (01) ==
PROVIDERS: PCP Family Medicine; Visit Provider Internal Medicine Gastroenterology
PROC: 0DJ08ZZ Inspection of Upper Intestinal Tract, Via Natural or Artificial Opening Endoscopic (ICD-10-PCS; CPT 43235; principal; 2023-02-28 13:00)
DX: Z12.11 Encounter for screening for malignant neoplasm of colon (principal); K25.9 Gastric ulcer, unspecified as acute or chronic, without hemorrhage or perforation; K21.9 Gastro-esophageal reflux disease without esophagitis; K57.30 Diverticulosis of large intestine without perforation or abscess without bleeding; K64.8 Other hemorrhoids; K63.5 Polyp of colon; B96.81 Helicobacter pylori [H. pylori] as the cause of diseases classified elsewhere; J44.9 Chronic obstructive pulmonary disease, unspecified; E11.9 Type 2 diabetes mellitus without complications; E03.9 Hypothyroidism, unspecified; E55.9 Vitamin D deficiency, unspecified; Z87.891 Personal history of nicotine dependence; Z79.51 Long term (current) use of inhaled steroids; Z79.84 Long term (current) use of oral hypoglycemic drugs; Z79.01 Long term (current) use of anticoagulants; E66.01 Morbid (severe) obesity due to excess calories; Z68.41 Body mass index [BMI] 40.0-44.9, adult
CPT/HCPCS: 43239; 45385; 82948; 87081; 88305; J2001; J2704; J7120

== ENCOUNTER 2023-05-02 01:07 | Day surgery (SDC) | payer BC, SELFPAY ==
[2023-04-22 15:11] VITALS: BMI 40.9
--- NOTE | 2023-04-22 15:49 | PC.NURSE ---
Spoke with _PATIENT___ regarding medication _XARELTO .Pt. verbalizes understanding that the last dose of _XARELTO__ is to be taken on 04/29/2023____ and the Endoscopist will instruct them when to restart after the procedure.
--- NOTE | 2023-04-29 09:46 | SUR.PREOP ---
Patient called regarding upcoming procedure. Reviewed preop instructions, appointment times, and procedure prep.
--- NOTE | 2023-05-01 14:22 | PM.HPGS ---
History of Present Illness History of Present Illness Consent: Risks, benefits, and alternatives have been discussed and questions answered. Patient agrees to proceed with procedure. Chief complaint: unspecified gastric ulcer Narrative: Siri Gonsales is a 62 year old female who is here for follow-up of gastric ulcers that were found a couple of months ago. Another of her complaints is frequent eructation. She has been on pantoprazole 40 mg for the past few months. Review of Systems Review of Systems: All systems reviewed & are unremarkable except as noted in HPI and below PMFSH Past Medical History Medical History Acute sinus infection Annual physical exam Bilateral lower extremity edema BMI 40.0-44.9, adult Colon cancer screening COPD (chronic obstructive pulmonary disease) Dehydration Diabetes type 2, controlled Elevated glucose Establishing care with new doctor, encounter for Fatigue History of frequent ear infections Hospital discharge follow-up Hospital discharge follow-up (~08/21/22) Hypotension Hypothyroidism Muscle strain Otalgia of both ears Otitis media Pain of left calf Palpitations Right shoulder pain Sinus tachycardia Tachycardia Tinnitus UTI (urinary tract infection) Vitamin D deficiency, unspecified Vitamin deficiency Surgical History Surgical History H/O breast surgery breast cancer 2014 H/O colonoscopy with polypectomy H/O lumpectomy H/O: hysterectomy History of appendectomy History of renal stent Hx of cholecystectomy Tear of right rotator cuff Right rotator cuff repair July 2020 Family History Family History Father Family history of diabetes mellitus in first degree relative Congestive heart failure Mother Family history of diabetes mellitus in first degree relative Sibling Family history of lung cancer Family history of diabetes mellitus in first degree relative Social History Social History Social History: 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 Code status full code Smoking packs per day: 0.5 Smoking cigarettes per day: 10.0 Years smoked: 47 Smoking pack-years: 23.50 Smoking status: Former smoker Tobacco type: cigarettes Second hand tobacco smoke exposure: No Smoking end date: 03/24/23 Alcohol intake: current Drinks per week: 5 Substance use: never Substance use type: does not use Last use: hasn't drank in 2 weeks Lack of Transportation: No Lack of Food: Never True Current Housing: I Have Housing Concerned About Future Housing: No Difficulty Paying Gas/Electric Bills: No Difficulty Paying for Meds: No Currently Unemployed: No Education: High School Diploma/GED Difficulty w/ Childcare or Family Care: No Living arrangements: with family Occupation/Education: unemployed Gender identity (if verbalized by the patient): Female Spiritual care concerns: No Meds Home Medications and Allergies Home Medications Medication Instructions Recorded Confirmed Type multivitamin 1 tablet PO DAILY 05/25/19 04/22/23 History cholecalciferol (vitamin D3) 100 100 mcg PO DAILY #30 caps 11/15/19 04/22/23 Rx mcg (4,000 unit) capsule metformin 500 mg tablet,extended 500 mg PO DAILY 01/13/22 04/22/23 History release 24 hr albuterol sulfate 90 mcg/actuation See Rx Instructions .Route 03/23/22 04/22/23 Rx aerosol inhaler .COMPLEX #20.1 grams celecoxib 100 mg capsule See Rx Instructions .Route 08/20/22 04/22/23 History .COMPLEX PRN Pain rivaroxaban 20 mg tablet (Xarelto) 20 mg PO DAILY 11/25/22 05/02/23 History Unithroid 125 mcg tablet See Rx Instructions .Route 12/14/22 05/02/23 Rx (levothyroxine) .COMPLEX #90 tabs
[2023-05-02 09:13] VITALS: BP 128/74; PULSE 107; RESP 18; TEMP 37.5; O2SAT 100
[2023-05-02 09:29] LABS: Glucose Point of Care 86 mg/dl (65-105)
[2023-05-02] MEDS: LACTATED RINGERS 1,000 ML 150 ML IV CONT (09:59)
--- NOTE | 2023-05-02 10:04 | WPDANESEPPF ---
Anes - Initial Pre Proc Eval Procedure: Operation Date: 05/02/23 10:30 Proposed Procedures p Esophagogastroduodenoscopy - Gui Blanchard MD Date/Time: 05/02/23 10:04 Surgeon: Gui Blanchard MD Pre Op Diagnosis: unspecified gastric ulcer Patient Data Age: 62 Gender: F Height: 1.56 m Weight: 102.4 kg Last Vital Signs Temp 99.5 F 05/02/23 09:13 Pulse 107 H 05/02/23 09:13 Resp 18 05/02/23 09:13 BP 128/74 05/02/23 09:13 Pulse Ox 100 05/02/23 09:13 O2 Del Method Room Air 05/02/23 09:13 Allergies Allergy/AdvReac Type Severity Reaction Status Date / Time Penicillins Allergy Mild Unknown Verified 05/02/23 09:12 cephalexin Allergy Unknown Unknown Verified 05/02/23 09:12 codeine AdvReac Mild Palpitation Verified 05/02/23 09:12 s Home Medications Medication Instructions Recorded Confirmed Type multivitamin 1 tablet PO DAILY 05/25/19 04/22/23 History cholecalciferol (vitamin D3) 100 100 mcg PO DAILY #30 caps 11/15/19 04/22/23 Rx mcg (4,000 unit) capsule metformin 500 mg tablet,extended 500 mg PO DAILY 01/13/22 04/22/23 History release 24 hr albuterol sulfate 90 mcg/actuation See Rx Instructions .Route 03/23/22 04/22/23 Rx aerosol inhaler .COMPLEX #20.1 grams celecoxib 100 mg capsule See Rx Instructions .Route 08/20/22 04/22/23 History .COMPLEX PRN Pain rivaroxaban 20 mg tablet (Xarelto) 20 mg PO DAILY 11/25/22 05/02/23 History Unithroid 125 mcg tablet See Rx Instructions .Route 12/14/22 05/02/23 Rx (levothyroxine) .COMPLEX #90 tabs metoprolol succinate 25 mg 12.5 mg PO BID 02/18/23 05/02/23 History tablet,extended release 24 hr pantoprazole 40 mg tablet,delayed 40 mg PO QAM #30 tabs 02/28/23 04/22/23 Rx release fenofibrate 160 mg tablet See Rx Instructions .Route 03/03/23 04/22/23 Rx .COMPLEX #90 tabs atorvastatin 20 mg tablet 20 mg PO DAILY #90 tabs 04/06/23 04/22/23 Rx fluconazole 150 mg tablet 150 mg PO ONCE #1 tablet 04/06/23 04/22/23 Rx cyclobenzaprine 10 mg tablet 10 mg PO TID PRN muscle spasm #30 04/12/23 04/22/23 Rx tabs phenazopyridine 100 mg tablet 100 mg PO TID PRN pain #6 tabs 04/12/23 04/22/23 Rx (Pyridium) tramadol 50 mg tablet 50 mg PO Q6H PRN pain #60 tabs 04/12/23 04/22/23 Rx Laboratory Tests 05/02/23 09:25 POC Capillary Glucose 86 mg/dl (65-105) Patient hx anesthesia problems: none Family hx anesthesia problems: none Results Review: All pre-operative results and documents have been reviewed as part of the pre-operative evaluation. [facility] Past Medical History Medical History Acute sinus infection Annual physical exam Bilateral lower extremity edema BMI 40.0-44.9, adult Colon cancer screening COPD (chronic obstructive pulmonary disease) Dehydration Diabetes type 2, controlled Elevated glucose Establishing care with new doctor, encounter for Fatigue History of frequent ear infections Hospital discharge follow-up Hospital discharge follow-up (~08/21/22) Hypotension Hypothyroidism Muscle strain Otalgia of both ears Otitis media Pain of left calf Palpitations Right shoulder pain Sinus tachycardia Tachycardia Tinnitus UTI (urinary tract infection) Vitamin D deficiency, unspecified Vitamin deficiency Surgical History Surgical History H/O breast surgery breast cancer 2014 H/O colonoscopy with polypectomy H/O lumpectomy H/O: hysterectomy History of appendectomy History of renal stent Hx of cholecystectomy Tear of right rotator cuff Right rotator cuff repair July 2020 Family History Family History Father Family history of diabetes mellitus in first degree relative Congestive heart failure Mother Family history of diabetes mellitus in first degree relative Sibling Family history of lung cancer Family history of diabetes zulma
[2023-05-02] MEDS: BENZOCAINE (*SP) 60 ML SPRAY CAN (HURRICAINE) 1 SPRAY MUCOUS MEM (10:16)
[2023-05-02 10:26] VITALS: BP 99/49; PULSE 112; RESP 24; O2SAT 99
[2023-05-02 10:36] VITALS: BP 100/57; PULSE 109; RESP 12; O2SAT 99
[2023-05-02 10:45] VITALS: BP 113/58; PULSE 104; RESP 20; O2SAT 99
--- NOTE | 2023-05-02 10:46 | SUR.PHASEII ---
Dr. Blanchard advised of positive hypylori
== END 2023-05-02 10:52 | disposition home or self-care (01) ==
PROVIDERS: PCP Family Medicine; Visit Provider Internal Medicine Gastroenterology
PROC: 0DJ08ZZ Inspection of Upper Intestinal Tract, Via Natural or Artificial Opening Endoscopic (ICD-10-PCS; CPT 43235; principal; 2023-05-02 10:30)
DX: K25.9 Gastric ulcer, unspecified as acute or chronic, without hemorrhage or perforation (principal); K29.70 Gastritis, unspecified, without bleeding; E03.9 Hypothyroidism, unspecified; I95.9 Hypotension, unspecified; E55.9 Vitamin D deficiency, unspecified; J44.9 Chronic obstructive pulmonary disease, unspecified; E11.9 Type 2 diabetes mellitus without complications; Z79.84 Long term (current) use of oral hypoglycemic drugs; Z79.51 Long term (current) use of inhaled steroids; Z79.01 Long term (current) use of anticoagulants; Z79.891 Long term (current) use of opiate analgesic; E66.01 Morbid (severe) obesity due to excess calories; Z68.41 Body mass index [BMI] 40.0-44.9, adult; Z87.891 Personal history of nicotine dependence; Z86.010 Personal history of colon polyps; Z96.0 Presence of urogenital implants; Z90.49 Acquired absence of other specified parts of digestive tract; Z82.49 Family history of ischemic heart disease and other diseases of the circulatory system; Z80.1 Family history of malignant neoplasm of trachea, bronchus and lung
CPT/HCPCS: 43239; 82948; 87081; J2704; J7120

== ENCOUNTER 2023-06-08 09:28 | Outpatient (CLI) | payer BC, SELFPAY ==
[2023-06-10 20:05] LABS: H pylori, Urea Breath NOT DETECTED (NOT DETECTED)
== END 2023-06-08 09:29 | disposition home or self-care (01) ==
LOC: ANHLAB 09:30
PROVIDERS: PCP Physician Assistant Medical; Visit Provider Internal Medicine Gastroenterology
DX: K25.9 Gastric ulcer, unspecified as acute or chronic, without hemorrhage or perforation (principal)
CPT/HCPCS: 83013

== ENCOUNTER 2024-12-26 12:24 | Outpatient (CLI) | payer MEDICARE, SELFPAY ==
--- OUTSIDE RECORDS SUMMARY | 2024-12-26 12:34 | XMS_ITS | Clinical Summary ---
Author Organization [facility] Address [address] [place] [address] Care Team Providers Care Senior Manager Mmcoe Name Role Phone Darryl Valdez MD Primary Care Provider [phone] Source Comments [facility],non-owned Affiliates and Associated Physician Practices is amultiple site organization consisting of ambulatory clinics and hospital sitesin [place], [place], [place] and [place]. This disclosure is being madepursuant to the Care Everywhere program and may not contain all information available regarding this patient. Last updated 18.[facility] [employer] Allergies Active Allergy Reactions Criticality Noted Date Comments Clindamycin Unknown 02/16/2017 Codeine 10/20/2011 Dronedarone Dizziness,Other Low 02/17/2023 Pt states that she gets lightheaded and hiccups while on medication Keflex 10/20/2011 Meloxicam Unknown 02/16/2017 Penicillins 10/20/2011 Sulfa Antibiotics Unknown 02/16/2017 Medications * Be aware that medications may not be up to date on this document. Alwaysverify current medications with the patient. metFORMIN (Glucophage) 500 MG tablet Take 1 (one) tablet by mouth once daily Active fenofibrate (Lofibra) 160 MG tablet Take 1 (one) tablet by mouth once daily Take with largest meal of the day. Active zinc sulfate (Zincate) 220 (50 ZN) MG capsule Take 1 (one) capsule by mouth once daily Active cetirizine (ZyrTEC) 10 MG tablet Take 1 (one) tablet by mouth once daily as needed for Runny Nose or Allergies 3 Active Multiple Vitamin (MULTI-VITAMIN DAILY PO) Multi Vitamin Active albuterol HFA (Proventil; Ventolin; Proair) 108 (90 Base) MCG/ACT inhaler albuterol sulfate HFA 90 mcg/actuation aerosol inhaler INHALE 1 PUFF BY MOUTH EVERY 4 HOURS NEEDED FOR SHORTNESS OF BREATH OR WHEEZING Active Cholecalciferol 25 MCG (1000 UT) Take 4 (four) tablets by mouth once daily Active Unithroid 125 MCG tablet Take 1 (one) tablet by mouth daily before breakfast 3 Active atorvastatin (Lipitor) 20 MG tablet Take 1 (one) tablet by mouth every Tuesday, Tuesday & Tuesday 36 tablet 3 4 Active furosemide (Lasix) 20 MG tablet Take 1 (one) tablet by mouth as needed 4 Active Additional Information Patient not taking.Reported on 01/04/2024 metoprolol succinate XL 24hr (Toprol XL) 25 MG tablet Take 1 (one) tablet by mouth once daily 90 tablet 3 4 Active Xarelto 20 MG tabletIndicatio ns:Paroxysmal A-fib (HCC) TAKE 1 TABLET BY MOUTH DAILY WITH FOOD 90 tablet 3 4 Active Active Problems Problem Noted Date Diagnosed Date Primary fibromyalgia syndrome 11/14/2023 Assessment & Plan (11/14/2023 10:18 AM CDT): I discussed the approach to the clinical diagnosis of a fibromyalgia syndrome as a cause for chronic musculoskeletal pain. I do not provide long-term care for the treatment of fibromyalgia however will provide some additional initial treatment recommendations and follow-up however once feeling improved will recommend that she follow-up with her primary care provider/physician for any additional needed long-term treatment approach recommendations that may be of benefit for relief of symptoms related to this non-inflammatory hypersensitivity pain disorder. I strongly encourage the avoidance of opiate analgesic medication (narcotics), as well as benzodiazepines, in the treatment of fibromyalgia associated pain given their potential risk for serious side effects and/or dependency issues and opiate induced hyperalgesia (use of alf opiate/narcotic actually causing more pain rather than less) that can be associated with such use. Chronic heart failure with preserved ejection fr action 01/04/2023 Paroxysmal A-fib 01/04/2023 Plantar fascial fibromatosis 01/01/2012 Overview (08/22/2017): Given meloxicam and handout for stretching exercises. Informed patient about the long protracted course of the condition.Mild reflux symptoms at best. Advised not to take naproxen concurrently with meloxicam. Resolved Problems Problem Noted Date Diagnosed Date Resolved Date Shortness of breath 09/21/2022 11/14/19 Chest pain, unspecified type 09/21/2022 11/14/2023 Arthropathic psoriasis 01/01/201211/13 Overview (08/22/2017): Reiterated the importance of following up with .has stopped her sulfasalazine. PCP is Dr. Doyle. Immunizations Immunization Administration Dates Next Due INFLUENZA VACCINE, TRIV. (AF [place], FLUZONE TRIVALENT; 6MO+) (IIV3) 03/17/2011 TDAP (7yrs+) 12/19/2012 Family History Medical History Relation Name Comments Diabetes Brother Crohn's Disease Daughter Cancer Father throat Diabetes Father Diabetes Mother Asthma Other son Relation Name Status Comments Brother Daughter Father Mother Other Social History Tobacco Use Types Packs/Day Years Used Date Smoking Tobacco: Former Cigarettes 0.5 48 0 08/13/1974 - 08/13/2022 Passive Smoke Exposure: Never Smokeless Tobacco: Never Tobacco Cessation:Counseling Given: Yes Alcohol Use Standard Drinks/Week Comments Not Currently 0 (1 standard drink = 0.6 oz pur e alcohol) Overall Financial Resource Strain (CARDIA) Answe r Date Recorded How hard is it for you to pa y for the very basics like food, housing, medical care, and heating? Not hard at all 01/26/2023 PHQ-2 Answer Date Recorded Patient Health Questionnaire-2 Score 0 06/29/2024 [facility] [place] [facility] Occupat ional [facility] - Occupational Stress Questionnaire Answer Date Recorded Do you feel stress - tense, restless, nervous, or anxious, or unable to sleep at night because your mind is troubled all the time - these days? Not at all 01/26/2023 Hunger Vital Sign Answer Date Recorded Within the past 12 months, y ou worried that your food would run out before you got the money to buy more. Never true 01/27/20 23 Within the past 12 months, t he food you bought just didn't last and you didn't have money to get more. Never true 01/26/2023 PRAPARE - Transportation Answer Date Re corded In the past 12 months, has l ack of transportation kept you from medical appointments or from getting medications? No 10/2022 In the past 12 months, has l ack of transportation kept you from meetings, work, or from getting things needed for daily living? No 01/26/2023 Housing Stability Vital Sign Answer Warren e Recorded In the last 12 months, was t here a time when you were not able to pay the mortgage or rent on time? No 01/26/2023 In the last 12 months, how many places have you lived? 1 01/26/2023 In the last 12 months, was t here a time when you did not have a steady place to sleep or slept in a detention (including now)? No 01/26/2023 Comments No Sex and Gender Information Value Date Recorded Sex Assigned at Not on file Legal Sex Female 6:45 PM CLINICAL PSYCHIATRIST Gender Identity Not on file Sexual Orientation Not on file Last Filed Vital Signs Vital Sign Reading Time Taken Comments Blood Pressure 110/68 06/29/2024 11:15 AM CLINICAL PSYCHIATRIST Pulse 91 06/29/2024 11:15 AM CLINICAL PSYCHIATRIST Temperature 36.7 C (98 F) 12/19/2023 9:34 PM CDT Respiratory Rate 18 12/19/2023 9:34 PM CDT Oxygen Saturation 97% 06/29/2024 11: 15 AM CLINICAL PSYCHIATRIST Inhaled Oxygen Concentration 21% 06/2022 10:37 PM CDT Weight 108.6 kg (239 lb 6.4 oz) 025 11:15 AM CLINICAL PSYCHIATRIST Height 156.2 cm (5' 1.5) 01/04/2024 9:19 AM CDT Body Mass Index 44.5 01/04/2024 9:19 AM CDT Plan of Treatment Upcoming Encounters Date Type Department Care Team (Late st Contact Info) Description 04/01/2025 12:15 PM CLINICAL PSYCHIATRIST Office Visit [facility] [address] [place] [address] [address] [place] [address] Иван Boone MD [address] [place], [place] [id number] Health Maintenance Due Date Last Done Comments COLOGUARD (AGES 45-75) - COLON CA SCREENING 1958 COLON MONITORING 1958 COLONOSCOPY - COLON CA SCREENING 1958 CT COLONOGRAPHY - COLON CA SCREENING 1958 Colorectal Cancer Screening 1958 FIT - COLON CA SCREENING 1958 FLEX SIG - COLON CA SCREENING 1958 MEDICARE AWV 12 MONTHS 1958 PNEUMOCOCCAL VACCINE 50+ (1 of 2 - PCV) 1977 LUNG CANCER SCREENING 2008 ZOSTER VACCINE (1 of 2) 2008 Respiratory Syncytial Virus (RSV) Vaccine Pt: or over 60 yrs (1 - Risk 60-74 years 1-dose series) 2018 DTAP/TDAP/TD VACCINES (2 - Td or Tdap) 12/19/2022 12/19/2012 COVID-19 VACCINE (3 - season) 2024 02/15/2021, 01/11/2021 INFLUENZA VACCINE (#1) 2025 03/17/2011 MAMMOGRAM 04/09/2026 04/09/2024, 03/23, 04/09/2024, Additional history exists SCREENING FOR DIABETES 12/07/2027 , 02/07/2024, 02/07/2024, Additional history exists HEPATITIS C SCREENING Completed 04/08/2018 BONE DENSITY TESTING Completed 08/05/2023, 12/09/19 19 DEPRESSION SCREENING Completed 06/29/2024, 09/28/19 23 HEPATITIS B VACCINE Aged Out No longe r eligible based on patient's age to complete this topic HIB VACCINE Aged Out No longer eligi ble based on patient's age to complete this topic HPV VACCINE Aged Out No longer eligi ble based on patient's age to complete this topic MENINGOCOCCAL (Group B) VACCINE SHARED DECISION-MAKING Aged Out No longer eligible based on patient's age to complete this topic MENINGOCOCCAL GROUPS A/C/Y/W VACCINE Aged Out No longer eligible based on patient's age to complete this topic Procedures Procedure Name Priority Date/Time Associated Diagnosis Comments GLUCOSE - POINT OF CARE Routine 07/07/2023 11:47 AM CLINICAL PSYCHIATRIST from Last 3 Months or Most Recently Relevant to Health Maintenance Results * (ABNORMAL) GLUCOSE - POINT OF CARE (07/07/2023 11:47 AM CLINICAL PSYCHIATRIST) Glucose WB/POC 121(H) 70 - 106 mg/dL 07/07/2023 11:48 AM CLINICAL PSYCHIATRIST [facility] Specimen Type Cap Fingerstick 2023 11:48 AM CLINICAL PSYCHIATRIST [facility] Blood BLOOD SPECIMEN / Unknown 07/07/2023 11:47 AM CLINICAL PSYCHIATRIST 07/07/2023 11:48 AM CLINICAL PSYCHIATRIST Chuy Tapia MD LAB - POINT OF CARE ORDERAB LES Final Result [facility] [id number] [place] [id number] from Last 3 Months or Most Recently Relevant to Health Maintenance Insurance MEDICARE MEDICARE SUPPLEMENT PAYOR GENERIC MEDICARE MEDICARE SUPPLEMENT PAYOR GENERIC Advance Directives * Full Code (Latest Code Status on File) Date Activated Date Inactivated Comments 07/07/2023 11:40 AM 07/07/2023 6:14 PM * Full Code Date Activated Date Inactivated Comments 01/26/2023 11:06 AM 01/26/2023 3:09 PM * Full Code Date Activated Date Inactivated Comments 09/21/2022 5:06 PM 09/23/2022 10:19 AM Care Teams Senior Manager Mmcoe Relationship Specialty Start Date End Date Darryl Valdez MD [address] [place], [place] [id number] [facility] - General 09/13/22
--- OUTSIDE RECORDS SUMMARY | 2024-12-26 12:34 | XMS_ITS | Clinical Summary ---
Author Organization [facility] Address [address] [place] [address] Phone Care Team Providers Care Mixed Crop Farmer Name Role Phone Reinier Melendez DO Unavailable [phone] Unknown, Notinfile Primary Care Provider Unavail able Allergies Active Allergy Reactions Criticality Noted Date Comments Cephalexin Hives,Other (See comments),Unknown High 07/04/2012 unknwon unknwon Codeine Palpitations,Unknown Low 10/20/2011 Dronedarone Dizziness Low 02/17/2023 Pt states that she gets lightheaded and hiccups while on medication Penicillins Other (See comments) Low 12/02/2008 unknown HAPPENED A CHILD Medications multivitamin tabletIndicatio ns:Vitamin Deficiency Prevention Take 1 tablet by mouth Active fenofibrate (TRIGLIDE) 160 mg tablet TK 1 T PO QD 5 8 Active cholecalciferol (VITAMIN D-3) 4,000 unit capsule Take 1 capsule (4,000 Units total) by mouth daily 90 capsule 2 0 Active zinc 50 mg tablet Take by mouth Active metFORMIN (GLUCOPHAGE) 500 mg tablet Take 1 tablet (500 mg total) by mouth daily with breakfast Active furosemide (LASIX) 20 mg tablet Take 1 tablet (20 mg total) by mouth as needed Active rivaroxaban (XARELTO) 20 mg tablet Take 1 tablet (20 mg total) by mouth daily with dinner Active Unithroid 125 mcg tablet TAKE 1 TABLET BY MOUTH EVERY DAY BEFORE MEAL 4 Active amiodarone (PACERONE) 200 mg tablet Take 1 tablet (200 mg total) by mouth daily 4 Active metoprolol XL (TOPROL-XL) 25 mg extended release tablet Take 1 tablet (25 mg total) by mouth daily 4 Active tirzepatide (Mounjaro) 2.5 mg/0.5 mL pen injector injection Inject 0.5 mL (2.5 mg total) under the skin Active alendronate (FOSAMAX) 70 mg tablet TAKE 1 TABLET BY MOUTH EVERY 7 DAYS. TAKE IN THE MORNING WITH A FULL GLASS OF WATER& EMPTY STOMACH, DO NOT LIE DOWN FOR 30 MINUTES 4 tablet 5 Active Active Problems Problem Noted Date Diagnosed Date Bilateral leg edema 11/17/2021 Right hip pain 09/09/2021 Gastroesophageal reflux dise ase with esophagitis without hemorrhage 06/09/2021 Fatigue 03/04/2021 Mixed hyperlipidemia 03/04/2021 Intermittent claudication 11/12/2020 S/P right rotator cuff repair 08/15/2020 Acquired hypothyroidism 05/26/2020 Pure hypertriglyceridemia 05/26/2020 PSVT (paroxysmal supraventricular tachycardia) 0 12/07/2019 Age-related osteoporosis wit hout current pathological fracture 12/12/2018 Radiation pneumonitis 12/05/2015 Disorder of lung 12/05/2015 Tobacco use 12/05/2015 Sinus tachycardia 10/01/2015 Shortness of breath 10/01/2015 Malignant neoplasm of upper- outer quadrant of left breast in female, estrogen receptor positive 10/01/2015 Cancer Staging:Clinical stage from 12/02/2014:Stage IB(cT1c, cN1(sn), cM0, G2, ER+, LA+, HER2-) - Signed by Reinier Melendez DO on 09/12/2018 Family history of malignant neoplasm of breast 0 12/19/2014 Arthropathic psoriasis 01/01/2012 Overview (01/05/2022): Reiterated the importance of following up with .has stopped her sulfasalazine. PCP is Dr. Doyle. Overview: Reiterated the importance of following up with .has stopped her sulfasalazine. PCP is Dr. Doyle. Plantar fascial fibromatosis 01/01/2012 Overview (01/05/2022): Given meloxicam and handout for stretching exercises. Informed patient about the long protracted course of the condition.Mild reflux symptoms at best. Advised not to take naproxen concurrently with meloxicam. Overview: Given meloxicam and handout for stretching exercises. Informed patient about the long protracted course of the condition.Mild reflux symptoms at best. Advised not to take naproxen concurrently with meloxicam. 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 12/25/2014 06/23/2022 Overview (01/05/2022): Stage: T1b N1 Date of diagnosis: 12/19/14 Diagnosis: left 11 mm + 8 mm IDC 3/8 LN ER(+) LA(+) Her 2 (-) Ki-67 30% Surgeon: [facility] Surgery: 01/14/15: left lump/ALND Medical Oncologist: Al Chemotherapy: dd AC + T Radiation Oncologist: Megahy Radiation: 06/28/15- 08/26/15 Hormonal therapy: pending 11/2014; invasive ductal cancer left breast; clinical stage I-T1, N0, M0; ER LA positive; HER-2 pending Stage: T1b N1 Date of diagnosis: 12/19/14 Diagnosis: left 11 mm + 8 mm IDC 3/8 LN ER(+) LA(+) Her 2 (-) Ki-67 30% Surgeon: [facility] Surgery: 01/14/15: left lump/ALND Medical Oncologist: Al Chemotherapy: dd AC + T Radiation Oncologist: Fercho Radiation: 06/28/15- 08/26/15 Hormonal therapy: pending Encounters Date Type Department Care Team Description 11/06/2024 Telephone [facility] Oncology [address] [place] [address] [address] [place] [address] Eden Rivas RN 10/26/2024 11:00 AM CDT Office Visit [facility] Oncology [address] [place] [address] [address] [place] [address] Reinier Melendez, DO Malignant neoplasm of upper-outer quadrant of left breast in female, estrogen receptor positive (HCC) (Primary Dx) 10/26/2024 9:45 AM CDT Lab [facility] at [address] [address] Malignant neoplasm of upper-outer quadrant of left breast in female, estrogen receptor positive (HCC) from Last 3 Months Immunizations Immunization Administration Dates Next Due Tdap 12/19/2012 Surgical History Surgery Date Site/Laterality Comments BREAST LUMPECTOMY BREAST BIOPSY COLONOSCOPY ROTATOR CUFF REPAIR 08/11/2020 Right Medical History Medical History Date Comments Breast cancer (HCC) Family History Medical History Relation Name Comments Lung cancer Brother Lymphoma Brother Thyroid cancer Brother Cancer Father Heart disease Father Family history of cardiac disorder - (Added by TW Conv) Throat cancer Father Relation Name Status Comments Brother Other Father Social History Tobacco Use Types Packs/Day Years Used Date Smoking Tobacco: Former Cigarettes 0 06/1977 - 06/2017 Smokeless Tobacco: Never Tobacco Cessation:Counseling Given: Not Answered Comments:smokes on the weekend Alcohol Use Standard Drinks/Week Comments No 0 (1 standard drink = 0.6 oz pur e alcohol) AUDIT-C Answer Date Recorded Q1: How often do you have a drink containing alc ohol? Monthly or less 12/27/2022 Q2: How many drinks containi ng alcohol do you have on a typical day when you are drinking? 1 or 2 12/27/2022 Q3: How often do you have si x or more drinks on one occasion? Never 12/27/2022 Personal Safety Answer Date Recorded Have you ever been in or are you currently in a harmful physical or emotional relationship or is someone making you feel afraid or unsafe? Denies 09/02/2022 Comments Unknown Sex and Gender Information Value Date Recorded Sex Assigned at Not on file Legal Sex Female 1:35 AM INDUSTRIAL PAINTER Gender Identity Not on file Sexual Orientation Not on file Obstetrics History Last Filed Vital Signs Vital Sign Reading Time Taken Comments Blood Pressure 109/70 10/26/2024 10:24 AM CDT Pulse 93 10/26/2024 10:24 AM CDT Temperature 36.6 C (97.9 F) 10/26/2024 10:24 AM CDT Respiratory Rate 18 10/26/2024 10:24 AM CDT Oxygen Saturation 97% 10/26/2024 10:24 AM CDT Inhaled Oxygen Concentration - - Weight 110 kg (242 lb 8.1 oz) 10/26/2024 10:24 A M CDT Height 154.9 cm (5' 1) 10/26/2024 10:24 AM CDT Body Mass Index 45.82 10/26/2024 10:24 AM CDT Plan of Treatment Health Maintenance Due Date Last Done Comments Colon Cancer Screening-Colonoscopy 1960 Depression Screening 1958 Fall Risk Assessment 1960 Hepatitis C Screening 1960 Hepatitis B Screening 1976 Pneumococcal vaccine 65+ (1 of 2 - PCV) 1977 Zoster Vaccine (1 of 2) 1977 Covid-19 Vaccine (3 - Modern a risk series) 03/15/2021 02/15/2021, 01/11/2021 DTaP/Tdap/Td Vaccine (2 - Td or Tdap) 12/19/2022 12/19/2012 Well Visit 65+ 10/26/2023 Influenza Vaccine (#1) 2025 Breast Cancer Screening-Mammogram 04/09/2025 04/09/2024, 04/09/2024, 04/09/2024, Additional history exists Osteoporosis Screening-Bone Density Scan 08/04/2025 08/05/2023, 12/08/2018 Procedures Procedure Name Priority Date/Time Associated Diagnosis Comments EGFR Routine 10/26/2024 9:44 AM CDT Malignant neoplasm of upper-outer quadrant of left breast in female, estrogen receptor positive (HCC) DIFFERENTIAL AUTO Routine 10/26/2024 9:4 4 AM CDT Malignant neoplasm of upper-outer quadrant of left breast in female, estrogen receptor positive (HCC) CBC WITH AUTO DIFFERENTIAL Routine 10/26/2024 9:44 AM CDT Malignant neoplasm of upper-outer quadrant of left breast in female, estrogen receptor positive (HCC) COMPREHENSIVE METABOLIC PANEL Routine 10/26/2024 9:44 AM CDT Malignant neoplasm of upper-outer quadrant of left breast in female, estrogen receptor positive (HCC) CANCER ANTIGEN 15-3 Routine 10/26/2024 9 :44 AM CDT Malignant neoplasm of upper-outer quadrant of left breast in female, estrogen receptor positive (HCC) SCREENING MAMMOGRAM BILATERAL W CHRISTY Schedule Routine, Read Routine (OP Routine) 04/09/2024 1:55 PM INDUSTRIAL PAINTER from Last 3 Months or Most Recently Relevant to Health Maintenance Results * eGFR (10/26/2024 9:44 AM CDT) eGFR 71 >=60 mL/min/1. 73 m2 Comment: Interpretive Data Reference Interval Normal >/= 90 mL/min/1.73m2 Mildly decreased* 60 - 89 mL/min/1.73m2 Mildly to moderately decreased 45 - 59 mL/min/1.73m2 Moderately to severely decreased 30 - 44 mL/min/1.73m2 Severely decreased 15 - 29 mL/min/1.73m2 Kidney Failure < 15 mL/min/1.73m2 *Relative to young adult level Estimated glomerular filtration rate is determined by the 2020 CKD-EPI equation recommended by the National Kidney Foundation (A Unifying Approach to GFR Estimation: Recommendations of the NKF-ASK Task Force on Reassessing the Inclusion of Race in Diagnosing Kidney Disease, JASN 2020). The CKD-EPI equation should not be used for patients with unstable renal function and has not been validated in children and those over 70. Current interpretive data was last reviewed 2021. Testing performed by: [address] [address] Blood 10/26/2024 9:44 AM CDT 10/26/2024 9:46 AM CDT Reinier Melendez DO LAB BLOOD ORDERABLES Final R esult [facility] [address] [facility] Department [place] [address] * Differential, auto (10/26/2024 9:44 AM CDT) Neutrophil abs 5.25 1.50 - 6.50 K/cumm Comment:Testing performed by : [address] [address] Imm gran abs 0.01 0.00 - 0.10 K/cumm [facility] Comment:Testing performed by : [address] [address] Lymphocyte abs 1.29 0.80 - 3.30 K/cumm [facility] Comment:Testing performed by : [address] [address] Monocyte abs 0.59 0.20 - 0.80 K/cumm [facility] Comment:Testing performed by : [address] [address] Eosinophil abs 0.13 0.00 - 0.50 K/cumm [facility] Comment:Testing performed by : [address] [address] Basophil abs 0.04 0.00 - 0.10 K/cumm [facility] Comment:Testing performed by : [address] [address] Neutrophil pct 71.9 % [facility] Comment: Interpretive Data Percent cell count reference ranges are not reported, since discordance with absolute values may lead to misinterpretation of CBC data. Current Interpretive Data was last revised on 2017. Testing performed by: [address] [address] Imm gran pct 0.1 % [facility] Comment: Interpretive Data Percent cell count reference ranges are not reported, since discordance with absolute values may lead to misinterpretation of CBC data. Current Interpretive Data was last revised on 2017. Testing performed by: [address] [address] Lymphocyte pct 17.6 % [facility] Comment: Interpretive Data Percent cell count reference ranges are not reported, since discordance with absolute values may lead to misinterpretation of CBC data. Current Interpretive Data was last revised on 2017. Testing performed by: [address] [address] Monocyte pct 8.1 % [facility] Comment: Interpretive Data Percent cell count reference ranges are not reported, since discordance with absolute values may lead to misinterpretation of CBC data. Current Interpretive Data was last revised on 2017. Testing performed by: [address] [address] Eosinophil pct 1.8 % [facility] Comment: Interpretive Data Percent cell count reference ranges are not reported, since discordance with absolute values may lead to misinterpretation of CBC data. Current Interpretive Data was last revised on 2017. Testing performed by: [address] [address] Basophil pct 0.5 % [facility] Comment: Interpretive Data Percent cell count reference ranges are not reported, since discordance with absolute values may lead to misinterpretation of CBC data. Current Interpretive Data was last revised on 2017. Testing performed by: [address] [address] Blood 10/26/2024 9:44 AM CDT 10/26/2024 9:46 AM CDT us Reinier Melendez DO LAB BLOOD ORDERABLES Final R esult [facility] [address] [facility] Department [place] [address] * (ABNORMAL) CBC with auto differential (10/26/2024 9:44 AM CDT) [facility] WBC 7.31 3.80 - 9.90 K/cumm Comment:Testing performed by : [address] [address] Hgb 11.4(L) 11.9 - 15.5 g/dL [facility] Comment:Testing performed by : [address] [address] Hct 34.6(L) 35.6 - 45.5 % [facility] Comment:Testing performed by : [address] [address] Plt 321 150 - 400 K/cumm [facility] Comment:Testing performed by : [address] [address] MPV 9.6 9.1 - 12.3 fL [facility] Comment:Testing performed by : [address], [address] RBC 3.84(L) 3.90 - 5.20 M/cumm [facility] Comment:Testing performed by : [address], [address] MCV 90.1 81.3 - 96.4 fL [facility] Comment:Testing performed by : [address], [address] MCH 29.7 27.1 - 33.3 pg [facility] Comment:Testing performed by : [address] [address] MCHC 32.9 32.3 - 35.7 g/dL [facility] Comment:Testing performed by : [address], [address] RDW CV 14.0 11.1 - 14.9 % [facility] Comment:Testing performed by : [address], [address] RDW SD 46.3 35.7 - 48.1 fL [facility] Comment:Testing performed by : [address] [address] NRBC abs 0.00 0.00 - 0.01 K/cumm [facility] Comment:Testing performed by : [address] [place] [address] ANC Prelim 5.25 1.50 - 6.50 K/cumm [facility] Comment: Interpretive Data The rapid ANC is a preliminary automated count and may vary from the final ANC (Neut Abs) reported in the WBC differential that follows. Current interpretive data was last revised 2024. Testing performed by: [address] [address] Blood 10/26/2024 9:44 AM CDT 10/26/2024 9:46 AM CDT Reinier Melendez DO LAB BLOOD ORDERABLES Final R esult Performing Organization Address [facility] de Phone Number [address] [place] [address] * Cancer antigen 15-3 (10/26/2024 9:44 AM CDT) Pathologist [facility] CA 15-3 ag 22.5 0.0 - 25.0 units/mL Comment: Interpretive Data The Braden CA 15-3 assay procedure was used. Results from different manufacturers or methods may not be comparable. Serial testing should be performed using the same method. Testing performed by: [address] [address] Blood 10/26/2024 9:44 AM CDT 10/26/2024 11:40 AM CDT Reinier Melendez DO LAB BLOOD ORDERABLES Final R esult Performing Organization Address [facility] de Phone Number [facility] [address] [facility] [place] [place] [address] * Comprehensive metabolic panel (10/26/2024 9:44 AM CDT) Pathologist [facility] Sodium 141 135 - 145 mmol/L Comment:Testing performed by : [address] [address] Potassium, pl 3.9 3.3 - 4.9 mmol/L [facility] Comment:Testing performed by : [address] [address] Chloride 106 97 - 110 mmol/L [facility] Comment:Testing performed by : [address], [place]., [address] CO2 23 22 - 32 mmol/L [facility] Comment:Testing performed by : [address], [place]., [address] Anion gap 12 2 - 15 mmol/L [facility] Comment:Testing performed by : [address], [place]., [address] BUN 18 6 - 25 mg/dL [facility] Comment:Testing performed by : [address], [place]., [address] Creatinine 0.90 0.60 - 1.10 mg/dL [facility] Comment:Testing performed by : [address] [address] Glucose 152 70 - 199 mg/dL [facility] Comment: Interpretive Data Fasting glucose >/= 126 mg/dl is diagnostic for diabetes. Fasting is defined as no caloric intake for at least 8 hours. Fasting glucose between 100 mg/dl to 125 mg/dl is diagnostic of prediabetes. In a patient with classic symptoms of hyperglycemia or hyperglycemic crisis, a random glucose >/= 200 mg/dl is diagnostic for diabetes. In the absence of unequivocal hyperglycemia, results should be confirmed by repeat testing. The classification and Diagnosis of Diabetes Diabetes Care 202; 46: S19-S40. Current interpretive data was last revised 2022. Testing performed by: [address] [address] Calcium 9.6 8.5 - 10.3 mg/dL [facility] Comment:Testing performed by : [address] [address] Bilirubin, total 0.2 0.1 - 1.2 mg/dL [facility] Comment:Testing performed by : [address] [address] Protein, pl 7.7 6.5 - 8.5 g/dL [facility] Comment:Testing performed by : [address] [address] Albumin 4.4 3.5 - 5.0 g/dL [facility] Comment:Testing performed by : [facility], [address] [place] [address]., [address] Alk phos 53 40 - 130 Units/L [facility] Comment:Testing performed by : [facility], [address] [place] [address]., [address] ALT 7 7 - 45 Units/L [facility] Comment:Testing performed by : [address] [address] AST 17 10 - 45 Units/L [facility] Comment:Testing performed by : [address] [address] Blood 10/26/2024 9:44 AM CDT 10/26/2024 9:46 AM CDT Reinier Melendez DO LAB BLOOD ORDERABLES Final R esult Performing Organization Address City/State/[facility] Co de Phone Number [facility] [address] [facility] Department of Laboratories [place], [place] [id number] * Screening Mammogram Bilateral W Christy (04/09/2024 1:55 PM INDUSTRIAL PAINTER) Anatomical Region Laterality Modality Breast Bilateral Mammography Historical Provider MD JACOB MAMMO PROCEDURES Mary l Result from Last 3 Months or Most Recently Relevant to Health Maintenance Insurance [facility] MEDICARE [facility] MEDICARE [facility] Care Teams Mixed Crop Farmer Relationship Specialty Start Date End Date Unknown, Notinfile PCP - General 10/16/24 Reinier Melendez DO [address] [place] [address] Medical Oncologist/Chiropractic Care Hematology and Oncology 03/31/18
--- OUTSIDE RECORDS SUMMARY | 2024-12-26 12:34 | XMS_ITS | Patient Health Record ---
Author Organization [facility] Address [address] [place], [place] [id number] Care Team Providers Care Flux Tube Attendant Name Role Phone CRISS PATHAK Unavailable [phone] Andrés Wooten Unavailable Unavailable Reason For Referral No Information Plan Of Treatment No Information Insurance Providers Payer Name Payer Address Payer Phone Subscriber Number Group Number Insured Name Patient Relationship to Insured Coverage Start Date Coverage End Date [facility] ([facility]) ATTN CLAIMS [address] [place] [address] [id number] MITESH VICK Spouse - patient is the spouse of the insured
--- OUTSIDE RECORDS SUMMARY | 2024-12-26 12:34 | XMS_ITS ---
Author Organization [facility] Address [address] [place] [address] Phone Care Team Providers Care Drafting Technician Name Role Phone Reinier Melendez DO Unavailable [phone] Unknown, Notinfile Primary Care Provider Unavail able Active Problems Problem Noted Date Diagnosed Date [...] from 12/02/2014:Stage IB(cT1c, cN1(sn), cM0, G2, ER+, UT+, HER2-) - Signed by Reinier Melendez DO [...] not to take naproxen concurrently with meloxicam. Current Treatment and Therapy Plans No current plan information found. Past Treatment and Therapy Plans No past plan information found. 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 12/25/2014 06/23/2022 Overview (01/05/2022): Stage: T1b N1 Date of diagnosis: 12/19/14 Diagnosis: left 11 mm + 8 mm IDC 3/8 LN ER(+) UT(+) Her 2 (-) Ki-67 30% Surgeon: [facility] Surgery: 01/14/15: left lump/ALND Medical Oncologist: Al Chemotherapy: dd AC + T Radiation Oncologist: Fercho Radiation: 06/28/15- 08/26/15 Hormonal therapy: pending 11/2014; invasive ductal cancer left breast; clinical stage I-T1, N0, M0; ER UT positive; HER-2 pending Stage: T1b N1 Date of diagnosis: 12/19/14 Diagnosis: left 11 mm + 8 mm IDC 3/8 LN ER(+) UT(+) Her 2 (-) Ki-67 30% Surgeon: [facility] Surgery: 01/14/15: left lump/ALND Medical Oncologist: Al Chemotherapy: seth AC + T Radiation Oncologist: Fercho Radiation: 06/28/15- 08/26/15 Hormonal therapy: pending
--- NOTE | 2024-12-26 16:55 | WPDSIXMINUTE ---
Six Minute Walk Procedure Procedure Performed Pulmonary Stress Test (6 min walk) Six Minute Walk Six Minute Walk: This is a 6 minute walk test. The test was performed and interpreted in accordance with the 2014 ERS/ATS task force guidelines. Of note, patient stopped the test at 4 minutes and 30 seconds due to hip pain. Findings: The patient's resting room air oxygen saturation measured by pulse oximetry was 97%, the heart rate was 79 bpm, and the modified Antonio dyspnea score was 0. Patient ambulated for 274 meters and oxygen saturation remained 94 to 96%. At the end of the study the heart rate was 120 bpm and the modified Antonio dyspnea score was 3. The patient did not qualify for supplemental oxygen at rest or with ambulation. There are no prior studies for comparison.
--- NOTE | 2024-12-26 16:58 | WPDPFTINT ---
PFT Procedure Performed PFT Procedure Performed Spirometry with Pre/Post Bronchodilator Plethysmography (Lung Vol) Diffusing Cap (DLCO) Flow Vol Loop PFT Interpretation This is a pulmonary function test with spirometry, plethysmography and diffusing capacity. The test was performed and results interpreted in accordance with the 2019 and 2005 ATS/ERS Task Force guidelines respectively using the Global Lung Function Initiative-2012 reference equations. Patient demonstrated good effort and cooperation. Reproducibility criteria were met. The quality of the spirometry maneuver was Grade A. Of note, patient declined albuterol due to atrial fibrillation. Findings: Spirometry: The contour the expiratory flow tracing resembles that of a witch's hat. The contour the inspiratory flow tracing is normal. The FVC is 1.63 L, 71% predicted. The FEV1 is 1.29 L, 71% predicted. The FEV1: FVC ratio 79%. Plethysmography: The total lung capacity is 2.75 L, 68% predicted. The functional residual capacity is 1.12 L, 46% predicted. The residual volume is 1.08 L, 59% predicted. Diffusing capacity: The diffusing capacity unadjusted for hemoglobin and carboxyhemoglobin is 14.2, 72% predicted. Diffusing capacity adjusted for alveolar volume is 5.31, 118% predicted. In comparison to previous pulmonary function testing on 03/12/2022, the FVC has decreased from 1.96 L to 1.63 L. The FEV1 has decreased from 1.58 L to 1.29 L. The total lung capacity is unchanged from 3.16 L to 2.75 L. The functional residual capacity is decreased from 1.33 L to 1.12 L. The residual volume is unchanged from 1.20 L to 1.08 L. The diffusing capacity unadjusted for hemoglobin and carboxyhemoglobin is unchanged from 16.5 to 14.2. The diffusing capacity adjusted for alveolar volume is increased from 2.09 to 5.31. Impression: There is a mild restrictive ventilatory abnormality. The spirometry is normal without evidence of an obstructive abnormality. The diffusing capacity is normal. In comparison to previous pulmonary function testing on 03/12/2022, there has been greater than anticipated time dependent decrease in the FVC, FEV1, and functional residual capacity. There has been a greater than anticipated time dependent increase in the diffusing capacity adjusted for alveolar volume with no significant change in the total lung capacity or diffusing capacity unadjusted for hemoglobin and carboxyhemoglobin. Clinical correlation recommended.
== END 2024-12-26 12:25 | disposition home or self-care (01) ==
LOC: ANHPFT 12:28
PROVIDERS: PCP Nurse Practitioner Family; Visit Provider Nurse Practitioner Family
DX: R94.2 Abnormal results of pulmonary function studies (principal)
CPT/HCPCS: 94375; 94618; 94726; 94729